=== PATIENT | male | born 1955 | race Caucasian/White ===

== ENCOUNTER 2024-03-25 18:25 | Inpatient (IN) | payer MEDICARE, BC ==
[~2024-03-25] VITALS: Ht 172.7 cm; Wt 82.1 kg
[~2024-03-25 18:25] MED LIST: ADULT ASPIRIN R81 MG PO; ALLOPURINOL300 MG PO; LISINOPRIL-HCT1 EAC2 PO
[2024-03-25] MEDS ORDERED: HIGH POTENCY I134 MG PO (18:38)
[2024-03-25] MEDS ORDERED: PANTOPRAZOLE SO40 MG PO (18:38)
[2024-03-25 19:02] LABS: BASOPHILS 0.6 % (0-2); EOSINOPHILS 0.5 % (0-6); HEMATOCRIT 18.4 % (35.0-50.0); HEMOGLOBIN 6.2 g/dL (12.0-18.0); MCH 29.2 (27-36); MCHC 33.7 g/dl (30-36); MCV 86.5 fl (81-99); MONOCYTES 5.2 % (0-12); NEUTROPHILS 79.7 % (39-80); PLATELET COUNT 331 K/uL (140-440); RBC 2.13 M/ul (4.3-5.7); RDW 14.3 (10.5-15.0)
[2024-03-25 19:15] LABS: ALBUMIN/GLOBULIN RATIO 1.03 (1.1-2.4); ANION GAP 14.6 (7-21); BILIRUBIN, TOTAL 0.4 ng/dL (0.2-1.0); CALCIUM 7.8 mg/dL (8.5-10.1); CREATININE, SERUM 1.1 mg/dL (0.70-1.30); POTASSIUM 3.6 mmol/L (3.5-5.1); PROTEIN, TOTAL 5.9 g/dL (6.4-8.2)
[2024-03-25 19:27] LABS: INR 1.05 (0.80-1.30); PROTIME 13.3 Sec (11.2-14.2)
[2024-03-25] MEDS ORDERED: PANTOPRAZOLE SODIUM 40 MG/10 ML VIAL IV ONE (19:30)
[2024-03-25 20:05] LABS: ABO B; ANTIBODY SCREEN NEGATIVE; IS CROSSMATCH COMPATIBLE; RH POSITIVE
[2024-03-25 20:06] LABS: ABO B; RH POSITIVE
[2024-03-25] MEDS ORDERED: MORPHINE SULFATE 4 MG/ML VIAL IV PRN (20:45)
[2024-03-25] MEDS ORDERED: ACETAMINOPHEN 325 MG TAB PO PRN (20:45)
[2024-03-25] MEDS ORDERED: DEXTROSE 5% - LACTATED RINGERS 1,000 ML IV SCH (20:45)
[2024-03-25] MEDS ORDERED: ondansetron HCL 4 MG/2 ML VIAL IV PRN (20:45)
[2024-03-25] MEDS ORDERED: PANTOPRAZOLE SODIUM 40 MG/10 ML VIAL IV SCH (21:00)
[2024-03-25 21:15] VITALS: BP 121/72
--- NOTE | 2024-03-25 21:30 | NUR ---
ADMISSION ASSESSMENT COMPLETE. SEE [facility] FOR DETAILS. PT DENIES PAIN. PT REQUESTING TO EAT. PT AWARE CLEAR LIQUID DIET IN PLAC. PT PROVIDED 2 JELLO'S AND ICE WATER. PT ORIENTED TO UNIT, ROOM AND POC. DR HOLLAND AT BEDSIDE FOR PT ASSESSMENT. 1 UNIT PRBC INFUSING PER ORDER. PT VERBALIZES UNDERSTANDINGTO USE CALL LIGHT WITH NEEDS. CALL LIGHT, PERSONAL ITEMS IN REACH. BED IN LOW, LOCKED POSITION. PT VSS AND NAD NOTED VIA DIRECT OBS, CONTINUOUS MONITOR AND PT STATEMENT.
[2024-03-25 22:00] VITALS: BP 146/86
--- NOTE | 2024-03-25 22:19 | NUR ---
PT ARRIVED TO UNIT VIA STRETCHER WITH ZAHRA MAZARIEGOSDEAN OF GRADUATE STUDIES AND PRESENT. PT SELF AMBULATED TO BED FROM STRETCHER WITHOUT INCIDENT. NAD NOTED VIA DIRECT OBS.
--- NOTE | 2024-03-25 22:46 | NUR ---
PT REQUESTED AND PROVIDED CONTAINER FOR HEARING AIDS, WARM BLANKET AND URINEL EMPTIED. REQUESTS PROVIDED. PT DENIES ADDITIONAL NEEDS. CALL LIGHT IN REACH. BED IN LOW LOCKED POSITION. VSS AND NAD NOTED VIA DIRECT OBS, CONTINUOUS MONITOR AND PT STATEMENT.
[2024-03-25 23:06] VITALS: BP 115/59
[2024-03-26] VITALS (13 sets, daily range): BP systolic 103–149; BP diastolic 63–110
--- NOTE | 2024-03-26 00:43 | NUR ---
SHIFT ASSESSMENT COMPLETE SEE [facility] FOR DETAILS. PT RESTING IN BED. PT STATES NO NEEDS. PRBC INFUSING INTO PATENT PIV WITHOUT INCIDENT. BED IN LOW, LOCKED POSITION WITH PERSONAL ITEMS AND CALL LIGHT IN REACH. VSS AND NAD NOTED VIA DIRECT OBS, CONTINUOUS MONITOR AND PT STATEMENT.
--- NOTE | 2024-03-26 02:16 | NUR ---
PT RESTING IN BED, EASILY AWAKENED TO VOICE. PT DENIES NEEDS AT THIS TIME. CALL LIGHT IN REACH. BED IN LOW, LOCKED POSITION. PRBC INFUSING PER EMAR INTO PATENT PIV WITHOUT INCIDENT. VSS AND NAD NOTED VIA DIRECT OBS, PT STATEMENT AND CONTINUOUS MONITOR.
--- NOTE | 2024-03-26 03:20 | NUR ---
PT RESTING IN BED. PT SNORING. O2 SAT DROPS TO 83% THEN INCREASES BACK TO >90% WITHIN SECONDS. NAD NOTED VIA DIRECT OBSAND CONTINUOUS MONITOR.
--- NOTE | 2024-03-26 04:35 | NUR ---
SHIFT ASSESSMENT COMPLETE. SEE [facility] FOR DETAILS. PT RESTINGIN BED. DENIES NEEDS. CALL LIGHT IN REACH. BED IN LOW, LOCKED POSITION. VSS AND NAD NOTED VIA DIRECT OBS AND CONTINUOUS MONITOR.
[2024-03-26 05:37] LABS: BASOPHILS 0.9 % (0-2); EOSINOPHILS 2.2 % (0-6); HEMATOCRIT 24.2 % (35.0-50.0); HEMOGLOBIN 8.2 g/dL (12.0-18.0); LYMPHOCYTES 17.9 % (24-44); MCH 29.2 (27-36); MCHC 33.9 g/dl (30-36); MCV 86.2 fl (81-99); MONOCYTES 8.2 % (0-12); NEUTROPHILS 70.8 % (39-80); PLATELET COUNT 265 K/uL (140-440); RBC 2.81 M/ul (4.3-5.7); RDW 13.9 (10.5-15.0)
[2024-03-26 06:03] LABS: ALBUMIN 2.6 g/dL (3.4-5.0); ALBUMIN/GLOBULIN RATIO 0.96 (1.1-2.4); ANION GAP 13.6 (7-21); BILIRUBIN, TOTAL 1.1 ng/dL (0.2-1.0); BUN/CREATININE RATIO 19.35 (6.0-28.6); CALCIUM 7.5 mg/dL (8.5-10.1); CREATININE, SERUM 0.93 mg/dL (0.70-1.30); MAGNESIUM 2.1 mg/dL (1.8-2.4); POTASSIUM 3.6 mmol/L (3.5-5.1); PROTEIN, TOTAL 5.3 g/dL (6.4-8.2)
--- NOTE | 2024-03-26 07:13 | NUR ---
REPORT GIVEN AND CARE ENDORSED TO DAYSHIFT RNs. PT RESTINGIN BED, VSS VIA CONTINUOUS MONITOR.
--- NOTE | 2024-03-26 07:45 | NUR ---
IN PT ROOM FOR MORNING ASSESSMENT. DR AT BEDSIDE TO DISCUSS PLAN. PT IS AWAKE AND ALERT SITTING UP IN BED. PT COMPLAINS OF HAVING A HEADACHE WITH 2/10 PAIN. EXPLAINED PLAN OF CARE FOR THE DAY. PT GIVEN CHG WIPE DOWN AND PROVIDED WITH A NEW GOWN. PT STATES HE HAS NO NEEDS AT THIS TIME. CALL LIGHT WITHIN REACH.
--- NOTE | 2024-03-26 07:59 | NUR ---
UR CLINICAL REVIEW: 2 MN FOR [employer] MEDICARE OBS 03/25/24 @ 1826 NO AUTH REQUIRE PENDING EGD, DISCHARGE TO HOME WHEN STABLE 03/27/24
[2024-03-26] MEDS ORDERED: ETOMIDATE 40 MG/20 ML VIAL ONE (08:53)
[2024-03-26 08:54] LABS: RBC, LEUKOREDUCED 18212409941500S; RBC, LEUKOREDUCED 18212410007500Y
--- NOTE | 2024-03-26 09:00 | NUR ---
Spoke with pt and his . 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 Primary address is in [place], [place]. He states they live on a boat in [place], [place]. They will return to their home here in [place] on dc. Pharmacy is [facility] when in [place]. They deny needs and he does not use any DME. They deny having completed POSLT or Advanced directive. I gave them two copies of the [place] Advanced directive forms. Pt plans on dc today after EGD. They deny any needs and deny any financial issues.
--- NOTE | 2024-03-26 09:15 | NUR ---
PT LEFT UNIT WITH SURGERY NURSE FOR SCOPE PROCEDURE
[2024-03-26] MEDS ORDERED: SUCCINYLCHOLINE IN 0.9% NACL 200 MG/10 ML SYRINGE ONE (09:16)
[2024-03-26] MEDS ORDERED: LIDOCAINE HCL 4% 5 ML AMP ONE (09:16)
[2024-03-26] MEDS ORDERED: propofoL 200 MG/20 ML VIAL ONE (09:32)
--- NOTE | 2024-03-26 10:10 | NUR ---
pt arrived back to floor from scope procedure. pt awake but drowsy, able to follow commands and answer questions. pt blood pressure is 108/70, heart rate 73, and SPO2 95% on RA. spouse at bedside. no needs at this time.
--- NOTE | 2024-03-26 10:30 | NUR ---
DR HOLLAND IN ROOM TO DISCUSS PROCEDURE FINDINGS. PT AT BEDSIDE. DR HOLLAND UPDATED PT AND WITH PLAN OF CARE FOR THE DAY.
--- NOTE | 2024-03-26 11:54 | NUR ---
PATIENT SITTING UP IN BED FOR LUNCH. FRESH ICE WATER PROVIDED WELL. AT BEDSIDE. CALL LIGHT IN EASY REACH
[2024-03-26] MEDS ORDERED: PHARMACY RENAL DOSE ADJUSTMENT 1 DOSE MISC PO SCH (12:00)
--- NOTE | 2024-03-26 13:35 | NUR ---
PT USED CALL LIGHT TO EMPTY URINAL. PT UP TO CHAIR. AT BEDSIDE. PT DENIES ANY PAIN AND HAS NO NEEDS AT THIS TIME. CALL LIGHT WITHIN REACH.
--- NOTE | 2024-03-26 14:46 | NUR ---
PATIENT TAKEN DOWN FOR CT SCAN AT 1425 AND IS BACK IN ROOM BY 1445. PT TOLERATED WELL. PT SITTING UP IN CHAIR IN ROOM AND DENIES FURTHER NEEDS/PAIN.
--- NOTE | 2024-03-26 17:24 | NUR ---
medications reconciled
--- NOTE | 2024-03-26 18:30 | EKG ---
[facility] [address] [facility] [place], [place] [address] Signed Normal sinus rhythm Left ventricular hypertrophy with repolarization abnormality Abnormal ECG When compared with ECG of 29-DEC-2022 10:07, Inverted T waves have replaced nonspecific T wave abnormality in Lateral leads Confirmed by Vitaliy Figueroa MD ([id number]) on 03/26/2024 6:30:12 PM Electronically Signed By: VITALIY FIGUEROA 03/26/24 1830 PATIENT NAME: SHEILAMIKE Neena Electrocardiogram DATE OF : 51 PHYSICIAN: VITALIY FIGUEROA REPORT #: [id number] REPORT IS CONFIDENTIAL AND NOT TO BE RELEASED WITHOUT AUTHORIZATION
--- NOTE | 2024-03-26 18:49 | NUR ---
PATIENT REMAINS SITTING UP IN CHAIR AND HAS FINISHED DINNER. PT DENIES PAIN, AND HAS TOLERATED FOOD WELL WITHOUT ANY SIGNS OF DISCOMFORT. PT WILL LIKELY D/C HOME TOMORROW.
--- NOTE | 2024-03-26 20:00 | NUR ---
PATIENT UP IN RECLINER. DENIED ANY PAIN OR GI UPSET. VS STABLE. PATIENT TOLERATED DINNER AND IS VOIDING TO URNAL. PATIENT REQUEST A SHOWER THIS EVENING AND HIS BROUGHT HIM CLOTHES TO SLEEP IN. PATIENT OTHERWISE DENIED ANY NEEDS. CALL LIGHT IN REACH.
--- NOTE | 2024-03-26 21:15 | NUR ---
PATIENT SHOWERED AND IN CLEAN CLOTHES. BACK ON MONITOR FOR THE NIGHT. PATIENT IS PAIN FREE WITH NO GI UPSET AND MOVES EASILY. DISCUSSED PLAN OF CARE AND ALL QUESTIONS ANSWERED. PATIENT RESTING IN BED WATCHING TV.
--- NOTE | 2024-03-26 21:35 | NUR ---
DISCUSSED PLAN OF CARE WITH . MEDS ORDERED, SEE EMAR. VERIFIED VIA REPEAT BACK.
[2024-03-26] MEDS ORDERED: PANTOPRAZOLE SODIUM 40 MG TABEC PO SCH (21:45)
[2024-03-26] MEDS ORDERED: SUCRALFATE 1 GM TAB PO SCH (22:00)
--- NOTE | 2024-03-26 22:08 | NUR ---
PATIENT PROVIDED SCHEDULED MEDS AND EDUCATED ON MEDS. PATIENT REPORTS A MILD HEADACHE THAT HAS BEEN OFF AND ON TODAY. NIO FOR TYLENOL PLACED. PATIENT PROVIDED A SNACK AND FRESH ICE WATER.
[2024-03-26] MEDS ORDERED: ACETAMINOPHEN 500 MG TAB PO PRN (22:15)
--- NOTE | 2024-03-26 23:00 | NUR ---
PRN TYLENOL PROVIDED FOR HEADACHE. PATIENT READY FOR SLEEP. DENIED ANY CONCERNS. VS STABLE. CALL LIGHT IN REACH.
[2024-03-27] VITALS: BP 117/72
[2024-03-27 02:00] VITALS: BP 132/80
--- NOTE | 2024-03-27 02:00 | NUR ---
PATIENT APPEARS RESTFUL IN BED. EYES CLOSED. VS STABLE. CALL LIGHT IN REACH.
[2024-03-27 04:00] VITALS: BP 108/63
--- NOTE | 2024-03-27 05:00 | NUR ---
MORNING LABS DRAWN. URNAL EMPTIED. PATIENT RESTING IN BED. NO CONCERNS OR NEEDS AT THIS TIME.
[2024-03-27 05:33] LABS: BASOPHILS 0.9 % (0-2); EOSINOPHILS 3.4 % (0-6); HEMATOCRIT 25.3 % (35.0-50.0); HEMOGLOBIN 8.4 g/dL (12.0-18.0); LYMPHOCYTES 16.7 % (24-44); MCHC 33.3 g/dl (30-36); MCV 87.3 fl (81-99); MONOCYTES 7.7 % (0-12); NEUTROPHILS 71.3 % (39-80); PLATELET COUNT 274 K/uL (140-440); RDW 14.7 (10.5-15.0)
[2024-03-27 05:42] LABS: ANION GAP 13.6 (7-21); BUN/CREATININE RATIO 14.42 (6.0-28.6); CALCIUM 7.7 mg/dL (8.5-10.1); CREATININE, SERUM 1.04 mg/dL (0.70-1.30); POTASSIUM 3.6 mmol/L (3.5-5.1)
[2024-03-27 06:36] VITALS: BP 118/80
--- NOTE | 2024-03-27 06:45 | NUR ---
PATIENT RESTING WITH EYES CLOSED. CALL LIGHT IN REACH.
[2024-03-27] MEDS ORDERED: SUCRALFATE 1 GM TAB PO SCH (07:00)
--- NOTE | 2024-03-27 07:45 | NUR ---
REPORT RECEIVED FROM BRASS RECLAIMER RN. PATIENT RESTING IN THE CHAIR. PATIENT UP AND ALERT AND HOPEFULL TO GO HOME TODAY. PATIENT DENEIS PAIN. JOSE LUIS RN IN TO SEE PATIENT AND WILL ASSSIT WITH CARES FOR PATIENT.
--- NOTE | 2024-03-27 08:20 | NUR ---
RECIEVED REPORT FROM NIGHTSHIFT NURSE. WENT IN ROOM TO INTRODUCE MYSELF TO PATIENT, PATIENT WAS SITTING UP IN RECLINER TALKING ON PHONE. GATHERED PATIENT'S VITALS AND SET UP BREAKFAST TRAY. REFILLED PATIENTS WATER. PATIENT WAS SITTING UP IN RECLINER HAVING BREAKFAST. PATIENT STATES HAVING NO OTHER NEEDS AT THIS TIME.
[2024-03-27 08:23] VITALS: BP 141/98
[2024-03-27] MEDS ORDERED: PANTOPRAZOLE SO40 MG PO (08:49)
[2024-03-27] MEDS ORDERED: SUCRALFATE1 GM PO (08:50)
--- NOTE | 2024-03-27 09:00 | NUR ---
Attempted to see pt. He is visiting with pharmacy.
--- NOTE | 2024-03-27 09:15 | NUR ---
WENT IN ROOM TO COMPLETE PATIENT ASSESSMNET AND GIVE MEDICATION. PATIENT VERBALIZED UNDERSTANDING OF WHY PROTONIX WAS GIVEN. PATIENT SITTING IN RECLINER IN HIS NORMAL CLOTHES READY FOR DISCHARGE. 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 REVIEWED PLAN OF CARE WITH PATIENT. AWAITING MD HOLLAND'S UPDATE.
--- NOTE | 2024-03-27 10:40 | NUR ---
Returned and spoke with pt and . They plan on dc today. FU appts have been made. Pt denies needs.
--- NOTE | 2024-03-27 11:00 | NUR ---
MD HOLLAND WANTS TO SEE PATIENT PRIOR TO DC. PATIENT UPDATED AND AWAITING MD WITH PATIENTS AT THE BEDSIDE.
--- NOTE | 2024-03-27 11:05 | CONS ---
[facility] [address] [place], [place] [address] Signed DATE OF CONSULTATION: 03/25/2024 REQUESTING PHYSICIAN: Dr. Amanda and Dr. Figueroa. ISSUE: Melena with significant anemia (symptomatic). HISTORY: A 68-year-old white man is well-known to me from the past. He recently underwent colonoscopy by me on March 14 showing diverticulosis. He had no symptoms of bleeding, diarrhea, or constipation. No family history of colon cancer. Although, diverticula were noted. There was no other abnormality, specifically no polyps. Since Sunday (today is Sunday), the patient has had a feeling of weakness and had hematemesis at least once and melena persistently since that time. He was able to tolerate working [place] but so when upright, became very weak and lightheaded. Certainly did not have any syncopal episodes per se, but knew that something was not quite right. He presented to [facility], his primary provider. CBC was obtained, which showed a hematocrit of approximately 16. I was called by Ilia Jc in this regard and given his symptomatic significant anemia with melena, I recommended he present to the emergency room. He was evaluated fully by Dr. Amanda where he was found to have a blood pressure systolic of 123 with a pulse of 74, but with hematocrit of 18.4 with a platelet count of 331 and normal electrolytes. His white count was 8.3. He was admitted as per our local custom to the hospitalist service with a transfusion initiated. The patient has been initiated on Protonix intravenously administered. His underlying medications include aspirin, ferrous sulfate, lisinopril, hydrochlorothiazide, and allopurinol. The patient has noted no bleeding prior to recent episode. He has had no blood per rectum or hematemesis in the past. He has no dysphagia or odynophagia. Quite notably, the patient suffered an ingestion in childhood of muriatic acid, which caused what sounds like a gastric outlet obstruction, ultimately undergoing "re-plumbing" as the patient put it, I suspect a gastrojejunostomy. He knows nothing more than that and this was a number of years ago in childhood. The patient has never had upper endoscopy in his adult life that he recalls or admits to. The patient does drink one beer a day. He does not smoke. He denies drug use. He has Electronically Signed By: ABHISHEK HOLLAND MD 03/27/24 1105 PATIENT NAME: MIKE SOSA CONSULTATION DATE OF : 51 REPORT #: [id number] PHYSICIAN: ABHISHEK HOLLAND MD PCP: ILIA JC REPORT IS CONFIDENTIAL AND NOT TO BE RELEASED WITHOUT AUTHORIZATION [address] [address] Signed recently been taking Motrin for joint pain and does take a low-dose aspirin daily. REVIEW OF SYSTEMS: He denies any epigastric or chest pain. He has no substernal burning pain or dysphagia. He has had hematemesis as described and melena as well. 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 He is accompanied by his . He has two grown daughters. PHYSICAL EXAMINATION: GENERAL: He, at this time, looks alert and oriented without sign of distress. VITAL SIGNS: Temperature 98.6, pulse 72, blood pressure 121/72. Trachea is midline. CHEST: Clear. HEART: Regular without murmur. ABDOMEN: Nondistended. He has no tenderness. No mass and no ascites. EXTREMITIES: Show no clubbing, cyanosis, or edema. his CBC at the hospital at approximately 6:50 p.m. showed a white count 8.3, hematocrit of 18.4, platelets of 331,000. Notably on December 29, a year ago, his hematocrit was 39.9 with platelets of 301. Chem profile essentially normal. Creatinine is 1.10. Liver enzymes show an alkaline phosphatase of 40, bilirubin 0.4. Coag studies are normal with an INR of 1.05. ASSESSMENT: The patient has clinical findings of acute upper gastrointestinal bleeding, which has been going on for several days at least since Sunday, four days ago. He has no associated his symptoms of dysphagia, epigastric pain, and so on. It is notable that he has had a gastric operation for what sounds like gastric outlet obstruction related to a muriatic acid ingestion in childhood. If he does have a gastrojejunal anastomosis as is considered possible, he may well have a peristomal ulceration. Ulceration of the duodenum or stomach certainly is a possibility as well. I would definitely recommend upper endoscopy be performed. It is not emergently needed at this time. He is undergoing transfusion, which was appropriate. The risk of bleeding, infection, and so forth were reviewed with him. He understands and wished to proceed. We will plan to do this probably tomorrow about 9:00 a.m., or alternatively in the early afternoon depending on logistical issues. Certainly, if he should "cut loose" with bleeding this evening, he can be done more urgently for hemostatic control. Abhishek Holland MD Electronically Signed By: ABHISHEK HOLLAND MD 03/27/24 1105 PATIENT NAME: MIKE SOSA CONSULTATION DATE OF : 51 REPORT #: [id number] PHYSICIAN: ABHISHEK HOLLAND MD PCP: ILIA JC REPORT IS CONFIDENTIAL AND NOT TO BE RELEASED WITHOUT AUTHORIZATION [facility] [address] [facility] [place] [address] Signed /MISTI /[id number] cc: [facility] DR, JERRY FIGUEROA Copies: ~ Electronically Signed By: ABHISHEK HOLLAND MD 03/27/24 1105 PATIENT NAME: MIKE SOSA CONSULTATION DATE OF : 51 REPORT #: [id number] PHYSICIAN: ABHISHEK HOLLAND MD PCP: ILIA JC REPORT IS CONFIDENTIAL AND NOT TO BE RELEASED WITHOUT AUTHORIZATION
--- NOTE | 2024-03-27 11:05 | OR ---
[facility] [address] [place], [place] [address] Signed DATE OF OPERATION: 03/26/2024 SURGEON: Abhishek Holland MD PREOPERATIVE DIAGNOSES: 1. Melena and hematemesis, significant anemia, hematocrit 18 (24 after 2 unit transfusion). 2. 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 POSTOPERATIVE DIAGNOSIS: Peristomal ulceration at gastrojejunal anastomosis suggestive of neoplasm. PROCEDURES: 1. Esophagogastroduodenoscopy with biopsy. 2. Control of bleeding with hemoclip and biopsies. ANESTHESIA: Intravenous sedation, propofol, Abhishek Morales CRNA. INDICATION: This 68-year-old white man is a patient of [facility]. He underwent colonoscopy by me in the past two weeks, which was normal. The patient over the past five days has had episodes of melena and at least one episode of hematemesis. A CBC was obtained by Ilia Jc showing a hematocrit of only 18. He was directed to the emergency room where he was evaluated by Dr. Amanda and found to have a low hematocrit and postural hypotension, but no sign of ongoing severe bleeding. He was admitted under the direction of the hospitalist and I was consulted as I knew him well. I have discovered that he has a distant childhood history of muriatic acid ingestion which resulted in gastric outlet obstruction and subsequent operation " " according to the patient. I suspect this was a gastrojejunal anastomosis. He has had no problem with this in the past and doing well. 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 I have recommended upper endoscopy to better characterize the problem. He has undergone a 2 unit blood transfusion to bring his hematocrit to 24. He has had no known bleeding throughout the night. He understands the risk of bleeding, infection, and perforation related to upper endoscopy and wished to proceed. FINDINGS: The esophagus was normal. There was indeed a gastrojejunal anastomosis as suspected. Electronically Signed By: ABHISHEK HOLLAND MD 03/27/24 1105 PATIENT NAME: MIKE SOSA OPERATIVE REPORT DATE OF : 51 REPORT #: [id number] PHYSICIAN: ABHISHEK HOLLAND MD PCP: ILIA JC REPORT IS CONFIDENTIAL AND NOT TO BE RELEASED WITHOUT AUTHORIZATION [facility] [address] [place], [place] [address] Signed This was an area of bleeding. A dense ulcerative plaque highly suggestive of neoplasm was noted. Biopsies were taken of this to diagnosis possible malignancy. A hemoclip was used at the base of the wound for hemostasis in the area of presumptive recent bleeding as well as to mahsa the lesion for CT scan. A CLOtest biopsy was negative 30 minutes post procedure. DESCRIPTION OF PROCEDURE: The patient was brought to the endoscopy suite and placed in the lateral decubitus position. He was given intravenous sedation with propofol infusional technique. A bite block was placed. Olympus video upper endoscope was passed in the hypopharynx. The vocal cords were normal. The scope was passed in the esophagus, which was normal. Passage to the GE junction was also normal. No sign of Tammie-Mackey tear. Within the stomach, there was no sign of clot. There was bilious fluid and rugal folds appeared somewhat edematous. In the midportion of the stomach, there was clear evidence of an ulcerated lesion as well as the gastrojejunal anastomosis as had been clinically suspected. The ulcer was somewhat deep and had some fresh blood there. In the center portion, there was an area suggestive of recent bleeding which was secured with a hemoclip ultimately. Biopsies were taken of the dense wall of the ulcerated area with strong suspicion this may represent malignant degeneration. A biopsy was taken of the stomach as well to assess for H pylori. CLOtest was negative 30 minutes post procedure. There was no actual gastric outlet of the stomach in the area of the pylorus that appeared to be scarred down. Retroflexed view did show a small hiatal hernia. There was no sign of proximal neoplasm. The scope was then withdrawn and the patient was taken to the recovery room in good condition. CONCLUDING DIAGNOSIS: Ulcerated lesion at gastrojejunal anastomosis from the distant past. I have strong suspicion this represents malignancy. Biopsies are pending. There is no sign of ongoing bleeding at this time. We will organize for a CT scan to be obtained to assess for the area in question as well as to assess for regional metastatic disease if present. In the meantime, treatment will include PPI medication and Carafate. Abhishek Holland MD /CESILIAL /[id number] Electronically Signed By: ABHISHEK HOLLAND MD 03/27/24 1105 PATIENT NAME: MIKE SOSA OPERATIVE REPORT DATE OF : 51 REPORT #: [id number] PHYSICIAN: ABHISHEK HOLLAND MD PCP: ILIA JC REPORT IS CONFIDENTIAL AND NOT TO BE RELEASED WITHOUT AUTHORIZATION [facility] [address] [place] [address] Signed cc: [facility] Copies: ILIA JC ~ Electronically Signed By: ABHISHEK HOLLAND MD 03/27/24 1105 PATIENT NAME: SHEILAMIKE Neena OPERATIVE REPORT DATE OF : 51 REPORT #: [id number] PHYSICIAN: ABHISHEK HOLLAND MD PCP: ILIA JC REPORT IS CONFIDENTIAL AND NOT TO BE RELEASED WITHOUT AUTHORIZATION
--- NOTE | 2024-03-27 11:13 | NUR ---
UR CLINICAL REVIEW: [employer]MN [employer] INPT 03/26/24 @ 1539 MEETS NO PA NEEDED PLAN TO DC TO HOME WHEN READY 03/30/24
--- NOTE | 2024-03-27 11:30 | NUR ---
MD HOLLAND CAME TO TALK TO PATIENT. DISCUSSED PLAN OF CARE. ANSWERED ALL QUESTIONS. PATIENT VERBALIZED UNDERSTANDING OF CARE PLAN AND WAS AGREEABLE TO PLAN OF CARE. PATIENT GATHERED OWN PERSONAL BELONGINGS. IV REMOVED AND CATHETER WAS INTACT. LAST VITAL SIGN CHECK WAS STABLE AND DOCUMENTED. PATIENT FOLLOW UP APPOINTMENT SCHDULED. PATIENT DISCHARGED WITH DRIVING HIM HOME.
[2024-03-28 15:25] LABS: CARCINOEMBRYONIC ANTIGEN 1.6 ng/mL (())
--- NOTE | 2024-04-01 20:16 | PATH ---
[facility] [address] [facility] [place], [place] [address] Signed THIS IS AN ADDENDUM REPORT SPECIMEN(S): A STOMACH BIOPSY SPECIMEN SOURCE: A. 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 COMMENT: Microsatellite instability testing by immunohistochemistry is pending and will be reported in an addendum. As part of [facility]' Quality Improvement Program, this case was reviewed by another member of our pathology staff. Diagnostic notification to the office of Dr. Crystal is initiated by Dr. Aparicio and will be recorded separately. JVR:MACKENZIE:fer MICROSCOPIC EXAMINATION: Histologic sections of all submitted blocks are examined by light microscopy. These findings, together with the gross examination, support the pathologic diagnosis. GROSS DESCRIPTION: The specimen, labeled and designated "Jeremy, stomach biopsy," is received in formalin and consists of four ellis soft tissue fragments, ranging from 0.1-0.2 cm. Entirely submitted in (A1). JS (under the direct supervision of a pathologist) The Gross Description was prepared using a voice recognition system. The report was reviewed for accuracy; however, sound-alike word errors, addition and/or deletions may occur. If there is any question about this report, please contact Client Services. PERFORMING LABORATORY: Technical component was performed by [facility], [address] [place] [id number] (CLIA# [id number]). Professional interpretation was PATIENT NAME: MIKE SOSA PATHOLOGY DATE OF : 51 REPORT #: [id number] PHYSICIAN: TAMRA BRYSON PCP: ILIA PIÑA REPORT IS CONFIDENTIAL AND NOT TO BE RELEASED WITHOUT AUTHORIZATION [facility] [address] [place], [place] [address] Signed performed by [facility], [address] [place] [address], [place] [address] (CLIA#: [id number]). COMMENT: Tumor cells show no loss of nuclear expression of MMR proteins. This correlates with a low probability of microsatellite instability. However, if there is a high clinical suspicion for Aguilera syndrome (hereditary non-polyposis colorectal carcinoma syndrome) in this patient, additional testing should be considered. Please contact [facility] if such testing is indicated. ELISEO:miles ADDITIONAL NOTES: Immunohistochemical and/or in situ hybridization studies were performed on this case with the appropriate positive controls that react as expected. This test was developed and its performance characteristics determined by [facility]. It has not been cleared or approved by the U.S. Food and Drug Administration. The FDA has determined that such clearance or approval is not necessary. This test is used for clinical purposes. It should not be regarded as investigational or for research. [facility] is certified under the Clinical Laboratory Improvement Amendments of 1988 (CLIA) as qualified to perform high complexity clinical laboratory testing. [facility], [address] [place] [address] [address] [place] [address] (CLIA#: [id number]). REASON FOR ADDENDUM: To report the results of microsatellite instability testing by immunohistochemistry. ADDENDUM PATHOLOGIC DIAGNOSIS: Stomach biopsy, invasive adenocarcinoma, microsatellite instability testing by IHC: - MLH1: Intact nuclear expression. - MSH2: Intact nuclear expression. - MSH6: Intact nuclear expression. - PMS2: Intact nuclear expression. INTERPRETATION: Normal pattern. ADDENDUM MICROSCOPIC EXAMINATION: A panel of four antibodies is selected which will detect 95% of microsatellite unstable carcinomas. Testing is performed at the request of Dr. Mariela Aparicio. PATIENT NAME: MIKE SOSA PATHOLOGY DATE OF : 51 REPORT #: [id number] PHYSICIAN: TAMRA PATHOLOGY PCP: ILIA PIÑA REPORT IS CONFIDENTIAL AND NOT TO BE RELEASED WITHOUT AUTHORIZATION [facility] [address] [place], [place] [address] Signed Block: A1. Recut HE slide is prepared from the block. The presence of neoplastic glands and non-neoplastic internal control glands or stroma is confirmed. Internal control cells for MLH1, MSH2, PMS2 and MSH6 are positive. Neoplastic gland cells show the following: - MLH1: Positive. - MSH2: Positive. - MSH6: Positive. - PMS2: Positive. [facility] [place] [facility] [place] [place] Diagnostician: Landen Aparicio MD Pathologist Electronically Signed 04/01/2024 Copies: ~ PATIENT NAME: MIKE SOSA PATHOLOGY DATE OF : 51 REPORT #: [id number] PHYSICIAN: TAMRA PATHOLOGY PCP: ILIA PIÑA REPORT IS CONFIDENTIAL AND NOT TO BE RELEASED WITHOUT AUTHORIZATION
== END 2024-03-27 11:25 | disposition home or self-care (01) | DRG 374 ==
LOC: ED 18:25 → CCU 18:26
PROVIDERS: Emergency Medicine; Family Medicine; Surgery; ADMIT Internal Medicine; ATTEND Internal Medicine
PROC: 0W3P8ZZ Control Bleeding in Gastrointestinal Tract, Via Natural or Artificial Opening Endoscopic (ICD-10-PCS; 2024-03-26)
PROC: 30233N1 Transfusion of Nonautologous Red Blood Cells into Peripheral Vein, Percutaneous Approach (ICD-10-PCS; 2024-03-26)
PROC: 0DB68ZX Excision of Stomach, Via Natural or Artificial Opening Endoscopic, Diagnostic (ICD-10-PCS; principal; 2024-03-26 09:45)
DX: C16.9 Malignant neoplasm of stomach, unspecified (principal); K28.4 Chronic or unspecified gastrojejunal ulcer with hemorrhage; D62 Acute posthemorrhagic anemia; K80.20 Calculus of gallbladder without cholecystitis without obstruction; Z98.890 Other specified postprocedural states; Z88.1 Allergy status to other antibiotic agents; Z88.5 Allergy status to narcotic agent; Z79.899 Other long term (current) drug therapy; Z79.82 Long term (current) use of aspirin
CPT/HCPCS: 00813; 36415; 36430; 74177; 80048; 80053; 82378; 83735; 84484; 85025; 85610; 86850; 86900; 86901; 86922; 88305; 88341; 88342; 93005; 93010; 96374; 96376; 99284-25; A9270; C9113; G0378; J0330; J2704; P9016; Q9967

== ENCOUNTER 2024-04-14 15:11 | Inpatient (IN) | payer MEDICARE, BC ==
[~2024-04-14] VITALS: Ht 172.7 cm; Wt 81.8 kg
[~2024-04-14 15:11] MED LIST changes: +HIGH POTENCY I134 MG PO; +PANTOPRAZOLE SO40 MG PO; +SUCRALFATE1 GM PO
[2024-04-15] MEDS ORDERED: LISINOPRIL10 MG PO (13:53)
[2024-04-15 14:05] VITALS: BP 1396/94
[2024-04-16] MEDS ORDERED: CARAFATE1 GM PO (17:43)
[2024-04-17] MEDS ORDERED: LACTATED RINGER'S 1,000 ML IV SCH ×2 (05:00→16:00)
[2024-04-17 06:25] VITALS: BP 142/83
[2024-04-17] MEDS ORDERED: LIDOCAINE HCL 1% 5 ML SDV INJ ONE (07:00)
[2024-04-17] MEDS ORDERED: HEParin SOD (PORCINE) 5,000 UNIT/0.5 ML SYR SUB-Q SCH ×2 (07:00→21:00)
[2024-04-17] MEDS ORDERED: levoFLOXacin 500 MG/100 ML BAG IV SCH (07:00)
[2024-04-17] MEDS ORDERED: IBLOOD GLUCOSE TEST STRIP 1 EA TEST VI PRN ×2 (07:00→13:00)
[2024-04-17] MEDS ORDERED: ROCURONIUM BROMIDE 50 MG/5 ML SYR ONE ×4 (07:03→14:46)
[2024-04-17] MEDS ORDERED: LIDOCAINE HCL 2% 20 MG/ML VIAL INJ ONE (07:03)
[2024-04-17] MEDS ORDERED: dexmedeTOMIDine HCl 200 MCG/2 ML VIAL ONE (07:03)
[2024-04-17] MEDS ORDERED: ondansetron HCL 4 MG/2 ML VIAL ONE ×2 (07:03→16:22)
[2024-04-17] MEDS ORDERED: DEXAMETHASONE SOD PHOS 4 MG/ML VIAL ONE ×4 (07:03→16:04)
[2024-04-17] MEDS ORDERED: propofoL 200 MG/20 ML VIAL ONE (07:03)
[2024-04-17] MEDS ORDERED: ACETAMINOPHEN 1,000 MG/100 ML VIAL ONE (07:03)
[2024-04-17] MEDS ORDERED: LIDOCAINE HCL 2% 5 ML SDV ONE (07:03)
[2024-04-17] MEDS ORDERED: fentaNYL citrate 100 MCG/2 ML VIAL ONE (07:03)
[2024-04-17] MEDS ORDERED: SUGAMMADEX SODIUM 200 MG/2 ML ML ONE (07:03)
[2024-04-17] MEDS ORDERED: KETAMINE in NS 50 MG/5 ML SYR ONE (07:04)
[2024-04-17] MEDS ORDERED: SODIUM CHLORIDE 0.9% 40 ML IV ONE (07:19)
[2024-04-17] MEDS ORDERED: iopamidoL 30 ML VIAL ONE (07:19)
--- NOTE | 2024-04-17 07:21 | NUR ---
justin dc in to talk with pt.
[2024-04-17] MEDS ORDERED: ePHEDrine sulfate 50 MG/ML AMP ONE (08:05)
[2024-04-17] MEDS ORDERED: LACTATED RINGER'S 1,000 ML IV ONE ×3 (08:48→15:27)
[2024-04-17] MEDS ORDERED: SODIUM CHLORIDE 0.9% 20 ML IV ONE ×2 (12:53→16:04)
[2024-04-17] MEDS ORDERED: Ropivacaine HCl 0.5% 30 ML VIAL ONE ×2 (12:53→16:04)
[2024-04-17] MEDS ORDERED: ondansetron HCL 4 MG/2 ML VIAL IV PRN ×2 (13:00→16:00)
[2024-04-17] MEDS ORDERED: droPERidol 5 MG/2 ML VIAL IV PRN (13:00)
[2024-04-17] MEDS ORDERED: HYDROmorphone HCL 1 MG/ML SYR IV PRN (13:00)
[2024-04-17] MEDS ORDERED: PROCHLORPERAZINE EDISYLATE 10 MG/2 ML VIAL IV PRN ×2 (13:00→16:00)
[2024-04-17] MEDS ORDERED: NALOXONE HCL 0.4 MG SYR IV PRN (13:00)
[2024-04-17] MEDS ORDERED: fentaNYL citrate 50 MCG/ML SDV IV PRN (13:00)
[2024-04-17] MEDS ORDERED: MORPHINE SULFATE 10 MG/ML VIAL IV PRN (16:00)
[2024-04-17] MEDS ORDERED: KETOROLAC TROMETHAMINE 15 MG/ML VIAL IV PRN (16:00)
[2024-04-17] MEDS ORDERED: levoFLOXacin 500 MG/100 ML BAG IV ONE (16:15)
[2024-04-17] MEDS ORDERED: ACETAMINOPHEN 1,000 MG/100 ML VIAL IV PRN (16:15)
[2024-04-17] MEDS ORDERED: droPERidol 5 MG/2 ML VIAL ONE (16:36)
[2024-04-17 17:25] VITALS: BP 163/85
--- NOTE | 2024-04-17 17:25 | NUR ---
RECIEVED PATIENT FROM DAYSURGERY AND REPORT FROM NURSE MULLEN. PT IS CURRENTLY IN BED BUT STATES THAT HIS BACK IS HURTING. VHARGE NURSE OFFERED A HEAT BACK TO PT BACK. PT HAS A RED BLANCHABLE AREA BY COCCYX. PT IS ON 3L WITH OXI MASK. PT ASKED IF SHE CAN HAVE ESSENTIAL OILS BUT WAS TOLD NO. CHARGE NURSE NOTIFIED. NO OTHER CONCERNS AT THIS TIME CALL LIGHT WITHIN REACH
[2024-04-17 18:42] VITALS: BP 153/74
--- NOTE | 2024-04-17 18:49 | NUR ---
pt complained of pain in his mid back. pt requested pain medication. pain medication given per dr calabrese. 4mg of morphine. pt is currently asleep on his right side with in room. dr floyd just went in to check on him. no other cares needed or requested at this time calll light within reach
--- NOTE | 2024-04-17 19:05 | NUR ---
REPORT RECEIVED FROM JOSE ANTONIO SWEENEY. pt RESTING IN THE BED. SKIN CHECK DONE. MINIMAL DRIANAGE ON BANDAGES. LLQ LOY DRAIN IS FULL AT THIS TIME, WILL EMPTY AFTER REPORT. pt DENIES ANY NEEDS AT THIS TIME. CALL LIGHT WITHIN REACH. CPOX ON. pt SATTING AT 99% ON 4L OXYMASK.
--- NOTE | 2024-04-17 19:28 | NUR ---
04/17/24 1928 Mckenna Villarreal 1551 PT ARRIVED TO PACU WITH ORAL AIRWAY IN PLACE AND CHIN LIFT USED OFF AND ON TO MAINTAIN AIRWAY. HOB INCREASED, 6L VIA MASK IN PLACE. 155 ORAL AIRWAY REMOVED, PT STARTS GRABBING FOR HIS FACE AND SAY "COFFEE TOO HOT." PT DIAPHERETIC AND MOVING AROUND IN BED, PT MOANING. RN STARTS TO REORIENT PT TO PACU. 1600 GASKET NOTCHER AT BEDSIDE AND ASKED PT ABOUT PAIN, PT REPORTS "YES AND TOO HOT." BLANKETS REMOVED AND COOL AIR AND COOL CLOTH PLACED ON PT FOREHEAD. 1610 GASKET NOTCHER AT BEDSIDE TO REDO ABD BLOCK. PT LOOKING AROUND ROOM AND GRMACING AND MOANING OFF AND ON. PT RESTLESS IN BED. 1615 PT HANDS ABOVE HIS HEAD AND FINGERS INTERLOCKED, O2 SAT UNABLE TO READ. 1620 PT ABLE TO RELAX RIGHT ARM AND O2 SAT LOW 90S. PT LESS RESTLESS AND REPORTS NAUSEA. 1625 NAUSEA MEDICATION GIVEN, PT REPORTS "I AM UNCOMFORTABLE." IV REINFORCED. PT NOTED TO BE LESS DIAPHROETIC AND SLIGHTLY MORE AWAKE. 1631 O2 MASK REMOVED. 1638 3L OXYMASK PLACED DUE TO O2 SAT HIGH 80S AND O2 INCREASED TO MID 90S. PT CONTINUES TO REPORTS NAUSEA BUT REMAINS VERY DROWSY AND UNABLE TO STAY AWAKE, SNORING NOTED WHEN ASLEEP AND O2 DECREASED TO LOW 90S. 1650 PT WAKES TO REPORTS HE IS VERY UNCOMFORTABLE, NAUSEA MORE THAN PAIN. 1656 NAUSEA MEDICATION GIVEN, EDUCATION GIVEN ON BREATHING AND MEDICATION GIVEN. HOB INCREASED SLIGHTLY. ABD BRACED WITH PILLOW AND EDUCATION GIVEN ON BRACING ABD WHEN COUGHING. 1707 PAIN MEDICATION GIVEN, AND DEEP BREATHING ENCOURAGED. PLAN OF CARE DISCUSSED. PT REPORTS HIS PAIN 7/10. 1715 PT RESTING BED WITH AND ASLEEP WITH SNORING NOTED. O2 REMAINS LOW 90S ON 3L, PT WAKES EASILY AND REPORTS PAIN 5/10 AND NAUSEA IS BETTER. 1725 PT TRANSFERED TO FLOOR AND REPORTS GIVEN WITH AT BEDSIDE. ALL QUESTIONS ANSWERED. BED PLUGGED IN AND CONTINUOUS PLUSE OX IN PLACE. NG TUBE TO LOW INTERMITTEN SUCTION AND BELONGING IN ROOM. HOB DECREASED AND PT ABLE TO SLEEP EASILY AND VSS. CALL LIGHT WITHIN REACH.
[2024-04-17 19:35] VITALS: BP 155/78
--- NOTE | 2024-04-17 20:20 | NUR ---
REMAINING PORTIONS OF ADMISSION COMPLETED. pt REQUESTING TO SIT ON EDGE OF BED D/T BACK PAIN FROM POSITIONING IN SURGERY. PRIMARY RN DANN AT BEDSIDE TO ASSIST.
[2024-04-17 20:38] VITALS: BP 166/91
--- NOTE | 2024-04-17 20:43 | NUR ---
Completed vitals and emptied ford at 600. Right VERNA 30. Left VERNA 35. Patient is painful in lower back and nurse has administrated pain medication. Patient stood at bedside to stretch legs and help back pain, became dizzy and so I helped him lay back into bed. Call light is within reach and nothing else is needed at this time.
--- NOTE | 2024-04-17 20:45 | NUR ---
ASSESSMENT AND VITAL SIGNS DONE. pt REQUESTED TO SIT UP AND STAND UP BECAUSE HIS BACK IS SORE AT THIS TIME. pt C/O 6/10 LOWER BACK PAIN AND NAUSEA. IV FLUSHED, PT STATE HIS IV SITE IS HURTING BUT IT FLUSHES OK. WHEN THIS RN WAS ADMINISTERING PRN AND SCHEDULED MEDICATIONS. THE pt SAID THAT HIS IV SITE WAS STILL HURTING HIM. UPON FURTHER INVESTIGATION THIS RN DID NOTICE THAT THIS IV SITE WAS INFLILTRATED. SO I STOPPED GIVING THE MEDICATION AND PROCEEDED TO START A NEW IV FOR THE pt. pt TITRATED DOWN TO 3L OXYMASK. ONCE THE NEW IV WAS STARTED AND WORKING OK THIS RN FINISHED ADMINISTERING THE MEDICATIONS PER ORDER, SEE MAR. HOT PACK PROVIDED FOR pt. SCD'D ON. LLQ DRESSING HAS MODERATE AMMOUNT OF DRINAGE AROUND THE LOY DRAIN. DRESSING STILL INTACT. ICE CHIPS FOR COMFORT. NG TUBE AT LOW INTERMITTENT SUCTION. pt DENIES ANY OTHER NEEDS AT THIS TIME. CALL LIGHT WITHIN REACH.
[2024-04-17] MEDS ORDERED: SUCRALFATE 1 GM TAB PO SCH (21:00)
[2024-04-17] MEDS ORDERED: FAMOTIDINE 20 MG/ 2 ML VIAL IV SCH (21:00)
--- NOTE | 2024-04-17 21:35 | NUR ---
IV ABX INFUSING PER ORDER, SEE MAR. pt DENIES ANY OTHER NEEDS AT THIS TIME. pt REMINDED TO PUT OXYMASK ON HIS SATURATION WERE DROPPING INTO THE LOW 80'S. pt STATES HE HAS SLEEP APNEA. CALL LIGHT WITHIN REACH.
[2024-04-17 22:54] VITALS: BP 166/91
--- NOTE | 2024-04-17 23:40 | NUR ---
pt RESTING IN THE BED WITH EYES CLOSED. pt SATTING AT 97% ON 2L OXYMASK. pt TITRATED DOWN TO 1L OXYMASK. NO OTHER NEEDS AT THIS TIME. CALL LIGHT WITHIN REACH.
[2024-04-18] VITALS (9 sets, daily range): BP systolic 154–175; BP diastolic 76–87
--- NOTE | 2024-04-18 01:45 | NUR ---
pt CALLED TO HAVE HIS SCD'S REMOVED FOR NOW. pt WANTS FRESH ICE CHIPS. ASSESSMENT AND VITAL SIGNS DONE. pt SATTING AT 97% ON 1L OXYMASK. pt DENIES ANY PAIN AT THIS TIME. NO NEW DRAINAGE ON DRESSINGS AT THIS TIME. CALL LIGHT WITHIN REACH.
--- NOTE | 2024-04-18 03:32 | NUR ---
pt RESTING IN THE BED WITH EYES CLOSED. RR EVEN AND UNLABORED. O2 SATURATION AT 96% ON 1L OXYMASK. CALL LIGHT WITHIN REACH.
[2024-04-18 05:24] LABS: BASOPHILS 0.1 % (0-2); HEMATOCRIT 26.8 % (35.0-50.0); HEMOGLOBIN 8.6 g/dL (12.0-18.0); LYMPHOCYTES 2.3 % (24-44); MCH 26.5 (27-36); MCV 82.8 fl (81-99); MONOCYTES 4.9 % (0-12); NEUTROPHILS 92.7 % (39-80); PLATELET COUNT 309 K/uL (140-440); RBC 3.24 M/ul (4.3-5.7); RDW 16.6 (10.5-15.0)
--- NOTE | 2024-04-18 06:13 | NUR ---
PER PROTOCOL, ORDER FOR CHEST X-RAY PLACED TO CONFIRM PLACEMENT OF NG TUBE PRIOR TO FLUSHING NG TUBE. IMAGING AWARE.
--- NOTE | 2024-04-18 06:45 | NUR ---
pt RESTED ALL NIGHT. pt TITRATED TO 1L OXYMASK FOR SLEEP APNEA. NOSE STICKER REAPPLIED. L AND R LOY DRAIN EMPTIED. REYNOSO EMPTIED. SCHEDULED MEDICATION ADMINISTERED.
--- NOTE | 2024-04-18 06:56 | NUR ---
CHEST X-RAY RESULT SUGGESTS TO ADVANCE NG TUBE. DISCUSSED WITH DR HOLLAND. PER DR HOLLAND, DO NOT ADVANCE OR WITHDRAW THE TUBE, LEAVE IN CURRENT PLACE. HE HAS IT IN THE LOCATION HE WANTS AND IT IS TO BE LEFT ALONE. PRIMARY RN UPDATED AND AWARE.
--- NOTE | 2024-04-18 07:30 | NUR ---
REPORT RECIEVED ON PT FROM NIGHT RN - PT RESTING IN BED AWAKE, ALERT AND ORIENTED. NGT TO LIS FUNCTIONING PROPERLY. REQUIRING 02 VIA OXYMASK WHILE SLEEPING. MIDLINE INCISION C/D/I WITH MINIMAL SPOTTING OF DRAINAGE ON ACTICOTE. VERNA DRAIN DRESSINGS CHANGED THEY WERE SATURATED WITH SEROSANG FLUID DRAINING FROM PUNCTURE SITE. PT COMPLAINS OF LOWER BACK PAIN, ICE PROVIDED WELL REPOSISTIONING. DENIES NEED FOR PAIN MEDICATION AT THIS TIME. BOWEL TONES ABSENT, ABDOMEN SOFT, TENDER BUT WITHOUT FULL SENSATION YET. REYNOSO CATH PATENT AND DRAINING CLEAR YELLOW URINE. SCDS IN PLACE. WASH RAG PROVIDED FOR AM CARES. PT DENIES FURTHER NEEDS AT THIS TIME.
--- NOTE | 2024-04-18 08:15 | NUR ---
PATIENT RESTING IN BED. RN IN ROOM WELL. CALL LIGHT WITHIN REACH, NO FURTHER NEEDS AT THIS TIME.
[2024-04-18] MEDS ORDERED: LISINOPRIL10 MG PO (09:46)
--- NOTE | 2024-04-18 09:48 | NUR ---
MED REC COMPLETE
--- NOTE | 2024-04-18 09:54 | NUR ---
pt resting in bed visiting with . reports increasing pain in lower back but denies need for pain medication at this time. Ice pack provided. IS instruction given by RT, pt demonstrates appropriate use. pt offered splinting blanket. call light in reach.
--- NOTE | 2024-04-18 11:37 | NUR ---
RN IN ROOM ROUNDING WITH MD - ALL QUESTIONS ANSWERED. POC DISCUSSED WITH PT AND PT AGREEABLE.
--- NOTE | 2024-04-18 12:02 | NUR ---
OFRIMEV ADMINISTERED FOR 4/10 ABD PAIN, PT FEELING "QUEEZY" AND DENIES WANTING MORPHINE AT THIS TIME, TOO SOON FOR TORADOL. REYNOSO CATH REMOVED WITHOUT DIFFICULTY.
--- NOTE | 2024-04-18 12:30 | NUR ---
PT AMBULATING IN HALLWAY, STEADY ON FEET, DENIES COMPLAINTS - BACK TO CHAIR. CALL LIGHT IN REACH.
--- NOTE | 2024-04-18 14:00 | NUR ---
AFTERNOON ASSESSMENT COMPLETE. PT USING IS AND COUGHING/DEEP BREATHING VOLUNTARILY. PAIN WELL CONTROLLED WITH PRN TORADOL. AMBULATING IN ROOM WITH ASSISTANCE FOR LINE MANAGMENT. DRAIN DRESSINGS CHANGED, VERNA DRAINS DRAINING SEROSANG FLUID. PT ABLE TO VOID SPONTANEOUSLY POST REYNOSO REMOVAL. AT BEDSIDE, DENIES COMPLAINTS. CALL LIGHT IN REACH.
--- NOTE | 2024-04-18 15:23 | NUR ---
PATIENT ALERT AND ORIENTED, SITTING UP IN BED. STATES HE LIVES IN HOUSE WITH . NO DME. NORMALLY PATIENT IS ABLE TO DRIVE, WILL ASSIST WITH TRANSPORTATION AT DC. DENIES ANY FINANCIAL HARDSHIP. INSTRUCTED TO NOTIFY STAFF IF NEEDS ARISE.
--- NOTE | 2024-04-18 15:52 | NUR ---
UR CLINICAL REVIEW: [facility]MN [facility] INPT 04/17/24 @ 1604 STATUS MATCHES ORDER NO AUTH REQUIRED PER MEDICARE RULES PLAN TO DC TO HOME WHEN STABLE.
--- NOTE | 2024-04-18 19:05 | NUR ---
REPORT RECEIVED FROM YANIQUE SWEENEY. pt RESTING IN THE BED. pt REQUESTING TO GO FOR A WALK. PLAN DICUSSED WITH pt. NO OTHER NEEDS AT THIS TIME. CALL LIGHT WITHIN REACH.
--- NOTE | 2024-04-18 20:45 | NUR ---
THIS REGIONAL SALES TRAINER ASSISTED PT TO WALK IN THE HALLWAY, x2 HALLWAY [facility], (RM 110 TO 118 AND BACK TO PT RM) PT SBA WITH IV POLE ASSIST, BACK TO RM, USED URINAL ONCE MORE, TUCKED INTO BED
--- NOTE | 2024-04-18 21:30 | NUR ---
pt RESTING IN THE BED. SCHEDULED MEDICATIONS ADMINSITERED, SEE MAR. pt NG TUBE STOPPED AND UNPLUGGED SO HE CAN TAKE HIS CARAFATE AND GO FOR A WALK. MIDLINE ACTICOTE HAS NO NEW DRAINAGE AND IS INTACT. LLQ DRESSING INTACT WITH MINIMAL DRAINAGE AT THIS TIME. RLQ DRESSING CDI. pt DENIES ANY PAIN AT THIS TIME. CALL LIGHT WITHIN REACH. NO OTHER NEEDS AT THIS TIME.
--- NOTE | 2024-04-18 23:11 | NUR ---
pt RESTING IN THE BED. RR EVEN AND UNLABORED. SCD'S ON. pt DENIES ANY NEEDS AT THIS TIME. CALL LIGHT WITHIN REACH. IVF INFUSING PER ORDER.
--- NOTE | 2024-04-19 01:43 | NUR ---
pt ASKED TO BE REPOSITIONED. pt DENIES ANY OTHER NEEDS AT THIS TIME. CALL LIGHT WITHIN REACH.
--- NOTE | 2024-04-19 03:28 | NUR ---
pt RESTING IN THE BED WITH EYES CLOSED. RR EVEN AND UNLABORED. CALL LIGHT WITHIN REACH.
[2024-04-19 06:13] VITALS: BP 162/80
--- NOTE | 2024-04-19 06:34 | NUR ---
pt RESTING ALL NIGHT, ONLY NEEDS PRN PAIN MEDICATIONS ONE DURING THE NIGHT. NO ACTIVE BOWEL TONES. DRESSING CHANGED AROUND THE LLQ LOY DRAIN. NG TUBE CONNECTED TO LOW INTERMITTENT SUCTION. IV LEAKING. NEW IV PLACED IN LEFT FOREARM. MIDLINE DRESSING HAS NO NEW DRAINAGE.
--- NOTE | 2024-04-19 07:47 | NUR ---
recieved report from nurse at [phone]. pt is currently in bed asleep with even and unlabored breathing noted. skin assessed with rn. no drainage noted. call light within reach
--- NOTE | 2024-04-19 07:54 | NUR ---
PATIENT SLEEPING IN BED AT THIS TIME. CALL LIGHT WITHIN REACH, NO FURTHER NEEDS AT THIS TIME.
--- NOTE | 2024-04-19 09:30 | NUR ---
PT REPORTED SOME PAIN IN HIS ABDOMEN AND REQUESTED PAIN MEDICATION. PT GIVEN PAIN MEDS PER DR ORDERS. NO OTHER CARES NEEDED OR REQUESTED AT THIS TIME.
[2024-04-19 09:56] VITALS: BP 151/94
--- NOTE | 2024-04-19 10:02 | NUR ---
DR HOLLAND NOTIFIED ABOUT PTS HIGH BLOOD PRESSURES AND PT USUALY TAKES 10 MG OF LISINOPRIL AT HOME. IS AWARE AND SAID HE WILL MAKE A DECISION.
--- NOTE | 2024-04-19 10:28 | NUR ---
SYSTEMS ANALYST ENGINEER INTRODUCED HERSELF TO PT. SYSTEMS ANALYST ENGINEER EMPTIED PT URINAL AND RECORDED THE OUTPUT ON PT BATHROOM DOOR. PT STATES NO FURTHER NEEDS AT THIS TIME AND CALL LIGHT IS WITHIN REACH
[2024-04-19] MEDS ORDERED: PANTOPRAZOLE SODIUM 40 MG/10 ML VIAL IV SCH (11:00)
--- NOTE | 2024-04-19 11:59 | NUR ---
PT STATES THAT PQAIN LEVEL IS 2/10 AND MIDLINE DRESSING TAKEN OFF PER DR ORDERS. NO DRAINAGE OF ANY KIND. PT IS NOW IN BED RERSTING . NO OTHER CARES NEEDED AT THIS TIME CALL LIGHT WITHIN REACH
--- NOTE | 2024-04-19 13:20 | OR ---
[facility] [address], [place] [address] Signed DATE OF OPERATION: 04/17/2024 SURGEON: Abhishek Holland MD PREOPERATIVE DIAGNOSES: 1. Adenocarcinoma moderately to poorly differentiated at prior gastrojejunostomy site. 2. Symptomatic gallstones. POSTOPERATIVE DIAGNOSES: 1. Adenocarcinoma moderately to poorly differentiated at prior gastrojejunostomy site. 2. Symptomatic gallstones. PROCEDURES: 1. Subtotal gastrectomy with Aury-en-Y gastrojejunostomy; prolonged, complicated, and difficult. 2. Resection of portion of proximal jejunal loop contiguous with the gastric neoplasm. 3. Open cholecystectomy. ASSISTANTS: 1. Karime Gray RN. 2. Bridget Sánchez RN. ANESTHESIOLOGIST: iMsael Banuelos CRNA ANESTHESIA: General endotracheal and postoperative intercostal blocks. INDICATIONS: This 68-year-old white man is a patient of VIRGEN Roberto. He was found to have significant anemia and melena requiring hospitalization. An upper endoscopy was performed, which showed an ulcerated mass adjacent to a gastrojejunostomy that he had performed at age 2. 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 He has had no real problems since that time regarding the gastrointestinal tract. Only days before his most recent upper endoscopy, he underwent colonoscopy, which was relatively normal except for some diverticula. A CT scan was performed at time of his recent upper endoscopy, which showed no evidence of metastatic disease to Electronically Signed By: ABHISHEK HOLLAND MD 04/19/24 1320 PATIENT NAME: MIKE SOSA OPERATIVE REPORT DATE OF : 51 REPORT #: [id number] PHYSICIAN: ABHISHEK HOLLAND MD PCP: ILIA PIÑA REPORT IS CONFIDENTIAL AND NOT TO BE RELEASED WITHOUT AUTHORIZATION [facility] [address], [place] [address] Signed the liver or any sign of ascites or carcinomatosis. CEA level was normal. His CT scan was performed on March 26, 2024. An Endo clip had been placed at the site of bleeding from the ulceration and was visualized on the CT scan as expected. An upper GI was recently performed to better characterize the anatomy of the situation. He has no outlet from the pylorus, but does have good outlet of the the stomach related to the gastrojejunostomy. Under the circumstances of his current findings, I have recommended subtotal gastrectomy with Aury-en-Y reconstruction. Additionally he is noted to have gallstones on the pre op ct scan. He has some biliary colic symptoms from those at this point. Concurrent cholecystectomy is offered as well. The patient and his understand the risk of bleeding, infection, various complications related to this operation and wished to proceed. FINDINGS: He had a previous left paramedian incision. A midline incision was used on this occasion, extending from the xiphoid to the umbilicus. Intra-abdominal inspection showed no evidence of ascites or carcinomatosis. There was no sign of hepatic metastasis. The neoplasm itself was palpable at the junction between the antrum and the body of the stomach in relation to the previous loop gastrojejunostomy. Quite notably the distance from the ligament of Treitz to the actual gastrojejunostomy was not long and dissection was required to fully excise the stomach in continuity with the loop jejunostomy. A Aury-en-Y reconstruction was accomplished. Quite notably there was no outlet of the stomach at the pylorus due to prior scarring. Transection of the duodenum was approximately 2 cm distal to the pylorus itself. The reconstruction included a Aury-en-Y gastrojejunostomy, which was tension-free. Mesenteric defect through which the Aury limb was passed was secured to avoid herniation in the future. The jejuno- jejunostomy anastomosis was somewhat challenging on the basis of it is short length in relation to resection. The operation was profoundly prolonged, complicated, and difficult, lasting 7 hours in time. DESCRIPTION OF PROCEDURE: The patient was brought to the operating room, given a general endotracheal anesthetic. Preoperative antibiotic Levaquin had been given. Sequential compression device stockings used and heparin subcutaneously administered. The abdomen was clipped and prepared with chlorhexidine solution and draped sterilely. An incision was made extending from the xiphoid to the umbilicus. The abdominal wall was not excessively thickened. The abdomen was entered without problem. Intra-abdominal inspection showed no sign of ascites or carcinomatosis. The round ligament of the liver was freed from Electronically Signed By: ABHISHEK HOLLAND MD 04/19/24 1320 PATIENT NAME: MIKE SOSA OPERATIVE REPORT DATE OF : 51 REPORT #: [id number] PHYSICIAN: ABHISHEK HOLLAND MD PCP: ILIA PIÑA REPORT IS CONFIDENTIAL AND NOT TO BE RELEASED WITHOUT AUTHORIZATION [address] [address] Signed the abdominal wall and later used to buttress the duodenal bulbar stump later in operation. Palpation of the liver showed no carcinomatosis. There was no sign of ascites or other signs of unresectability. Small bowel appeared normal. Palpation of the stomach did reveal a nodular area concordant to the gastrojejunal anastomosis and neoplasm itself. An upper hand retractor was used to provide exposure. Later, a Bookwalter retractor was attached to the table for use as well. The transverse colon was elevated and the very thick and bulky omentum attached to it was freed allowing for definition of the transverse mesocolon inferiorly and the greater curve of the stomach through the lesser sac. Quite obvious was the gastrojejunostomy penetrating through this area. Elevation of the transverse colon and examination of mesocolon concordant to it showed that this was a retrocolic gastrojejunostomy. The distance between the ligament of Treitz to the actual gastrojejunostomy was not very long. Palpation at the root of the mesentery corresponding to the jejunal limb was somewhat bulky, but not particularly hard and not nodular. Freeing of the omentum from the transverse colon was undertaken to the right side, ultimately mobilizing the hepatic flexure. The lateral wall of the duodenum was well visualized. The jejunal limb distally and proximally in relation to the stomach was freed as much as possible defining well the mesentery between the two limbs and anticipating resection fully to provide lymphadenectomy in that area. The left lobe of the liver was elevated and the superior aspect of the duodenal bulb identified and palpated. The pylorus was stenotic as clinically suspected. Meticulous care was made and dissecting free the pyloric area and the proximal portion of the duodenum. The lesser omentum was incised as high as possible towards the liver to provide lymphadenectomy as well. Dissection was carried to the left and with various maneuvers, all with an avascular technique, the stomach could be well defined as regard to the tumor, the gastrojejunal anastomosis and retroperitoneum. The pancreas was well visualized as well. The right gastroepiploic artery was secured with its associated lymphatic tissue as was the area cephalad to the pyloric area including the right gastric artery. Using an Endo KADEEM stapling device, the duodenum was transected 2 cm distal to the pylorus. Good security of the duodenal stump was noted. It appeared more appropriate to resect the stomach, and subsequently the gastrojejunal limb with the associated tumor than the jejunal limb first. The palpable tumor within Electronically Signed By: ABHISHEK HOLLAND MD 04/19/24 1320 PATIENT NAME: MIKE SOSA OPERATIVE REPORT DATE OF : 51 REPORT #: [id number] PHYSICIAN: ABHISHEK HOLLAND MD PCP: ILIA PIÑA REPORT IS CONFIDENTIAL AND NOT TO BE RELEASED WITHOUT AUTHORIZATION [facility] [address], [place] [address] Signed the stomach was measured for at least 5 cm cephalad after freeing and securing the left gastroepiploic arterial arcade. Similiarly the left gastric artery on the lesser curve was secured. The neoplasm was assure to be 5 cm from the line of intended transection and the palpable nasogastric tube was withdrawn to the proximal stomach. The stomach was transected with a 10 cm KADEEM stapling device. The lesser sac and portion of omentum was maintained in continuity with the stomach itself of course. This allowed isolation of the distal stomach and the the gastrojejunal anastomosis from the past. Meticulous care was provided and freeing the resected stomach in continuity with the remaining loop jejunostomy. At the root of this was a bulky mass, which represented either lipomatous mass or possibly metastatic disease. Meticulous care was made in dissecting this out in continuity with the jejunal limb. Care was taken particularly in its relationship to the superior mesenteric artery and vein. No injury to those structures occurred; however, there were a number of clips and so forth required to secure the bulky mesenteric mass with the specimen for resection. The distal limb of jejunum in relation to the gastrojejunal anastomosis from the past was transected with a KADEEM stapling device. An Endo KADEEM stapling device was used to transect the jejunum of the more proximal portion ( not far from the ligament of Treitz itself.) This allowed the specimen to be offloaded, photographed and examined more fully. The Aury limb was easily mobilized through a defect in the transverse mesocolon to lie in continuity with the stomach. An end to side jejuno- jejunal anastomosis was undertaken in a two-layer technique of interrupted 3-0 silk suture for the serosa and interrupted 3-0 Vicryl for the mucosal layer. Special and meticulous care was taken in this anastomosis as there was little remaining proximal jejunum in relation to the ligament of Trietze. Attention was turned towards the gastrojejunal anastomosis. The jejunal limb staple line had been oversewn with interrupted 3-0 sikl in a lembert technique. Similarly, the the staple line of the stomach was additionally secured with 3-0 interrupted silk suture. An side -to-side gastrojejunal aury limb anastomosis was then undertaken in a two-layer technique of interrupted 3-0 silk suture for the serosal layer and interrupted 3-0 Vicryl for the mucosal layer. A wide anastomosis was accomplished. Irrigation was undertaken. The duodenal stump from transection previously was additionally closed with interrupted 3-0 silk suture in a Lembert configuration and a portion of the round ligament was secured to the area to bolster the closure, though it did not appear to be of hazard for leakage or problem. Electronically Signed By: ABHISHEK HOLLAND MD 04/19/24 3855 PATIENT NAME: MIKE SOSA OPERATIVE REPORT DATE OF : 51 REPORT #: [id number] PHYSICIAN: ABHISHEK HOLLAND MD PCP: ILIA PIÑA REPORT IS CONFIDENTIAL AND NOT TO BE RELEASED WITHOUT AUTHORIZATION [facility] [address], [place] [address] Signed The transverse mesocolonic defect was secured with interrupted 3-0 silk suture and the Aury limb passing through it was secured to the mesocolon with interrupted 3-0 silk suture obliterating any defect for herniation in the future. Irrigation was undertaken. A drain was placed in through the left lateral abdominal wall near the jejuno-jejunal anastomotic area. Attention was turned towards the gallbladder. 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 Bookwalter retractor was manipulated into place and the upper hand retractor removed. The gallbladder was chronically inflamed, quite markedly elongated and a palpable stone was noted within the gallbladder. The gallbladder was grasped with a ring clamp and the peritoneum was incised with electrocautery, dissecting it free from the liver bed fully. Small clips were applied to the vascular branches as necessary. The cystic duct was relatively normal in size and was secured with two clips. Gallbladder was excised and opened on the back table to have a large irregular stone and no sign of mucosal neoplasm. Irrigation was undertaken in the subhepatic and perihepatic spaces securing hemostasis. Through a right-sided stab incision, a 7 mm flat Liban drain was placed through the area of the hepatic bed and onto the underlying surface of the exposed pancreas. Attention was then turned towards excision of omentum, which corresponded to the stomach, which had been freed previously. A generous portion of omentum was resected. Irrigation undertaken more fully. All the anastomoses were re-inspected and found to be healthy and plans made for closure. A drain was placed additionally in the left abdominal area in the general vicinity of the jejunojejuntostomy . The midline fascia was reapproximated with running bidirectional #1 PDS. Subcutaneous tissue was irrigated and the skin closed with running subcuticular 3-0 Vicryl. Steri-Strips were applied as was an Acticoat dressing. The operation was prolonged, complicated, and difficult lasting 7-1/2 hours, was accomplished safely. Blood loss was less than 150 mL. MD WALT Meraz/MODL /[id number] Electronically Signed By: ABHISHEK HOLLAND MD 04/19/24 1320 PATIENT NAME: MIKE SOSA OPERATIVE REPORT DATE OF : 51 REPORT #: [id number] PHYSICIAN: ABHISHEK HOLLAND MD PCP: ILIA PIÑA REPORT IS CONFIDENTIAL AND NOT TO BE RELEASED WITHOUT AUTHORIZATION [address] [address] Signed cc: VIRGEN Roberto Copies: IILA PIÑA ~ Electronically Signed By: ABHISHEK HOLLAND MD 04/19/24 1320 PATIENT NAME: SHEILAMIKE Neena OPERATIVE REPORT DATE OF : 51 REPORT #: [id number] PHYSICIAN: ABHISHEK HOLLAND MD PCP: ILIA PIÑA REPORT IS CONFIDENTIAL AND NOT TO BE RELEASED WITHOUT AUTHORIZATION
[2024-04-19 13:22] VITALS: BP 129/87
[2024-04-19] MEDS ORDERED: KETOROLAC TROMETHAMINE 30 MG/ML VIAL IV SCH (14:00)
[2024-04-19] MEDS ORDERED: ACETAMINOPHEN 1,000 MG/100 ML VIAL IV SCH ×2 (14:00)
--- NOTE | 2024-04-19 16:19 | NUR ---
PT AMBULATED FIVE LAPS AROUND UNIT, TOLERATED WELL. BACK TO BED. NG CLAMPED TEMP FOR SCHEDULED CARAFATE. SCDS PLACED. PT DENIES PAIN, NAUSEA OR FURTHER NEEDS AT THIS TIME. CALL LIGHT IN REACH.
--- NOTE | 2024-04-19 19:31 | NUR ---
REPORT RECEIVED FROM DAY SHIFT RN. PT LYING IN BED ALERT AND ORIENTED. DENIES NEEDS. WHITE BOARD UPDATED. CALL LIGHT IN REACH.
[2024-04-19 20:04] VITALS: BP 158/78
--- NOTE | 2024-04-19 20:37 | NUR ---
EVENING ASSESSMENT COMPLETE. SCHEDULED MEDS ADMIN PER EMAR. PT REPORTS LOWER BACK/ABD PAIN 02/28. SCHEDULED MEDS GIVEN. MIDLINE ABD INCISION WITH STERI STRIPS INTACT. OLD DRAINAGE NOTED. BOWEL TONES ACTIVE. ABD SOFT. PT DENIES FLATUS. DENIES NAUSEA. VERNA X 2 WITH SCANT AMOUNT SEROSANG DRAINAGE. NGT WITH SMALL AMOUNT FOAMY DRAINAGE. NGT CLAMPED FOR QUALIFICATIONS EXAMINER. CLEAR LIQUIDS AT BEDSIDE. PT DENIES QUESTIONS OR CONCERNS. CALL LIGHT IN REACH.
--- NOTE | 2024-04-19 21:10 | NUR ---
ASSIST PT TO AMBULATE IN THE HALLWAY, 5 LAPS IN THE M/S GRULLON, PT BACK TO ROOM
[2024-04-20] VITALS (9 sets, daily range): BP systolic 129–158; BP diastolic 77–92
--- NOTE | 2024-04-20 00:28 | NUR ---
PT RESTING IN BED WITH EYES CLOSED. RESPIRATIONS EVEN. CALL LIGHT IN REACH.
--- NOTE | 2024-04-20 01:50 | NUR ---
PT RESTING IN BED WITH EYES CLOSED. AWAKENS EASILY. PT REPORTS ABD/LOWER BACK PAIN 12/29. SCHEDULED MEDS ADMIN PER EMAR. DENIES NAUSEA. NGT SECUREMENT DEVICE REPLACED. NGT PATENT WITH SMALL AMOUNT FOAMY BROWN DRAINAGE. ABD ASSESSMENT UNCHANGED. PT DENIES FLATUS. VERNA #1 WITH 10 ML SEROSANG DRAINAGE. VERNA #2 WITH 30 ML SEROSANG DRAINAGE. NO FURTHER NEEDS. CALL LIGHT IN REACH.
--- NOTE | 2024-04-20 03:47 | NUR ---
PT REPORTS CONTINUED ABD/BACK PAIN 12/29. PRN FOR PAIN ADMIN PER EMAR. URINAL EMPTIED. NO FURTHER NEEDS.
--- NOTE | 2024-04-20 05:20 | NUR ---
Provided Pt with warm blanket and fresh ice water. Call light left in reach. No other needs expressed by Pt.
[2024-04-20 05:33] LABS: BASOPHILS 0.6 % (0-2); EOSINOPHILS 0.5 % (0-6); HEMATOCRIT 24.2 % (35.0-50.0); LYMPHOCYTES 10.1 % (24-44); MCH 26.4 (27-36); MCHC 33.1 g/dl (30-36); MCV 79.9 fl (81-99); MONOCYTES 7.2 % (0-12); NEUTROPHILS 81.6 % (39-80); PLATELET COUNT 278 K/uL (140-440); RBC 3.02 M/ul (4.3-5.7); RDW 16.2 (10.5-15.0)
--- NOTE | 2024-04-20 05:41 | NUR ---
LAB IN ROOM FOR MORNING DRAW. VS AND I&O OBTAINED. PT REPORTS PAIN IMPROVED, WAS ABLE TO GET SOME SLEEP. WALL SUCTION OFF AT THIS TIME FOR PO RUBY ENGINEER. IV ABX INFUSING PER ORDER. RLQ VERNA WITH 10 ML SEROSANG DRAINAGE. LLQ VERNA WITH 20 ML SEROSANGE DRAINAGE. NGT WITH 100 ML DARK FOAMY DRAINAGE THIS SHIFT. PT DENIES NEEDS AT THIS TIME. CALL LIGHT IN REACH.
[2024-04-20 06:04] LABS: ALBUMIN 2.4 g/dL (3.4-5.0); ALBUMIN/GLOBULIN RATIO 0.83 (1.1-2.4); ANION GAP 10.3 (7-21); BILIRUBIN, TOTAL 0.6 ng/dL (0.2-1.0); BUN/CREATININE RATIO 14.28 (6.0-28.6); CALCIUM 7.7 mg/dL (8.5-10.1); CREATININE, SERUM 0.91 mg/dL (0.70-1.30); POTASSIUM 3.3 mmol/L (3.5-5.1); PROTEIN, TOTAL 5.3 g/dL (6.4-8.2)
--- NOTE | 2024-04-20 07:47 | NUR ---
Board has been updated and call light has been placed within reach.
--- NOTE | 2024-04-20 08:47 | NUR ---
PT SCHEDULED MEDS GIVEN, SEE EMAR. PT DENIES PAIN AT THIS TIME. SITTING UP AT EDGE OF BED FOR CLEAR LIQUIDS. IV PATENT. NG REMAINS TO LIWS. PT DENIES FURTHER NEEDS AT THIS TIME. CALL LIGHT IN REACH.
--- NOTE | 2024-04-20 11:16 | NUR ---
PT AMBULATED UNIT x5 AND THEN TO SHOWER, TOLERATED WELL. UP TO RECLINER. PT DENIES PAIN AT THIS TIME. ACTIVE BOWEL TONES. PT DENIES PASSING GAS OR BM. MIDLINE WITH RONA, WELL APPROXIMATED. RIGHT VERNA WITH 30 ML SEROSANG DRAININAGE, LEFT WITH 10ML SEROSANG DRAINAGE. DRESSINGS TO BOTH VERNA SITES CHANGED. NG TO LIWS. MINIMAL OUTPUT. IV PATENT AND RUNNING FLUIDS. PT DENIES FURTHER NEEDS AT THIS TIME. CALL LIGHT IN REACH.
--- NOTE | 2024-04-20 12:18 | NUR ---
DR HOLLAND IN ROOM ROUNDING ON PT. PT DENIES PAIN OR NEEDS AT THIS TIME. CALL LIGHT IN REACH
[2024-04-20] MEDS ORDERED: POTASSIUM CHLORIDE 10 MEQ/100 ML BAG IV SCH (12:30)
--- NOTE | 2024-04-20 15:23 | NUR ---
PT RESTING IN BED, STATING HE WOULD LIKE TO REST, THEN WILL AMBULATE HALLWAY. CALL LIGHT IN REACH.
[2024-04-20] MEDS ORDERED: POTASSIUM CHLORIDE 100 ML IV ONE (16:39)
--- NOTE | 2024-04-20 17:11 | NUR ---
PT AMBULATED IN HALLWAY. INTO RECLINER. DENIES PAIN OR NEEDS AT THIS TIME. CALL LIGHT IN REACH.
--- NOTE | 2024-04-20 19:19 | NUR ---
REPORT RECEIVED FROM DAY SHIFT RN. PT SITTING ON COUCH ALERT AND ORIENTED. DENIES NEEDS. WHITE BOARD UPDATED. CALL LIGHT IN REACH.
--- NOTE | 2024-04-20 20:16 | NUR ---
EVENING ASSESSMENT COMPLETE. SCHEDULED MEDS ADMIN PER EMAR. SCHEDULED PAIN MEDS ADMIN FOR ABD PAIN. NO C/O NAUSEA. MIDLINE ABD INCISION WITH STERI STRIPS INTACT. OLD DRAINAGE NOTED. ABD VERNA X2 WITH SEROSANG DRAINAGE. BOWEL TONES ACTIVE. ABD SOFT. PT DENIES FLATUS. VS AND I&O OBTAINED, WNL. PT DENIES QUESTIONS OR CONCERNS. CALL LIGHT IN REACH.
--- NOTE | 2024-04-20 20:24 | NUR ---
PT AMB IN GRULLON INDEPENDENTLY. GAIT STEADY. ALBERT WELL.
--- NOTE | 2024-04-20 22:29 | NUR ---
FAMILY LEAVING FOR THE EVENING. PT REPORTS ABD CLEMENTE 12/01. PRN FOR PAIN ADMIN PER EMAR. NO FURTHER NEEDS.
--- NOTE | 2024-04-21 02:00 | NUR ---
IN FOR SCHEDULED PAIN PRECISION INSPECTOR. PT DENIES "REAL PAIN" DOES REPORT SOME "TENDERNESS" NO C/O NAUSEA. BOWEL TONES ACTIVE. ABD SOFT. PT DENIES FLATUS OR BM. VERNA LLQ EMPTIED OF 40 ML SEROSANG DRAINAGE. SCANT AMOUNT IN RLQ VERNA. MIDLINE ABD INCISION WITH STERI STRIPS INTACT. OLD DRAINAGE NOTED. PT TAKING SIPS OF WATER, FRESH PROVIDED. NO FURTHER NEEDS. CALL LIGHT IN REACH.
[2024-04-21 02:54] VITALS: BP 153/77
--- NOTE | 2024-04-21 04:15 | NUR ---
PT RESTING IN BED ON RIGHT SIDE. EYES CLOSED. RESPIRATIONS EVEN.
[2024-04-21 06:28] VITALS: BP 142/77
--- NOTE | 2024-04-21 06:49 | NUR ---
PT RESTING IN BED WITH EYES CLOSED. AWAKENS EASILY. VS AND I&O OBTAINED. VERNA X 2 WITH SEROSANG DRAINAGE. MIDLINE ABD INCISION WITH STERI STRIPS INTACT. OLD DRAINAGE NOTED. PT DENIES FLATUS OR BM. PT DENIES PAIN OR NAUSEA. NO FURTHER NEEDS AT THIS TIME. CALL LIGHT IN REACH.
--- NOTE | 2024-04-21 07:24 | NUR ---
PT ALERT AND INTERACTIVE DURING SHIFT REPORT. UP TO TOILET INDEPENDANTLY STATES HE FEELS LIKE HIS BOWELS NEED TO MOVE, MOVES A SMALL AMOUNT OF LOOSE STOOL. RATES ABDOMINAL PAIN 1/10 TYLENOL JUST ADMINISTERED. PT VERBALIZES UNDERSTANDING OF NEED TO AMBULATE SEVERAL TIMES THIS SHIFT. FRESH H20 TO BEDSIDE PT DENIES FURTHER NEEDS
--- NOTE | 2024-04-21 08:05 | NUR ---
CLEAR LIQUID TRAY SERVED, PT REPORTS HE IS DRINKING CAUTIOUSLY. STATES HE FEELS HUNGRY FOR THE FIRST TIME TODAY. ASSESSMENT CONPLETE
--- NOTE | 2024-04-21 08:11 | NUR ---
PATIENT RESTING IN BED AT THIS TIME. CALL LIGHT WITHIN REACH, NO FURTHER NEEDS AT THIS TIME.
[2024-04-21 09:34] VITALS: BP 140/77
--- NOTE | 2024-04-21 09:58 | NUR ---
DR HOLLAND IN TO SEE PT DISCUSSED HEALING AND PLAN GOING FORWARD, ALL QUESTIONS ANSWERED.
--- NOTE | 2024-04-21 09:59 | NUR ---
PATIENT IN BED AT THIS TIME. VITLAS AND I&O'S CHARTED. CALL LIGHT WITHIN REACH, NO FURTHER NEEDS AT THIS TIME.
--- NOTE | 2024-04-21 10:02 | NUR ---
PT UP AND AMBULATES THE GRULLON SEVERAL LAPS. STATES HE FEELS A LITTLE LIGHT HEADED WILL SIT IN THE CHAIR AND REST. AGREES TO REPORT ANY INCREASED OR FUTHER SYMPTOMS
--- NOTE | 2024-04-21 11:16 | NUR ---
PT AGREES LIGHT HEADEDNESS PASSED QUICKLY. REMAINS UP IN THE CHAIR DENIES NEEDS AT THIS TIME. AGREES HE IS LOOKING FORWARD TO LUNCH DIET ADVANCED TO FULL LIQUID
--- NOTE | 2024-04-21 11:29 | NUR ---
VISITED DURING SPIRITUAL CARE ROUNDS. PT APPEARED TO BE SLEEPING. DID NOT DISTURB. PROVIDED PRAYER.
--- NOTE | 2024-04-21 12:06 | NUR ---
PATIENT IN CHAIR AT THIS TIME. APPAREL MANUFACTURE INSTRUCTOR EMPTIED BOTH VERNA DRAINS. CALL LIGHT WITHIN REACH, NO FURTHER NEEDS AT THIS TIME.
[2024-04-21 14:06] VITALS: BP 124/67
--- NOTE | 2024-04-21 14:35 | NUR ---
PT TO THE RESTROOM SEVERAL TIMES THIS SHIFT PASSING SMALL AMOUNTS OF LOOSE STOOL. PT HAS ABMULATED SEVERAL TIMES WELL SITTING IN RECLINER. RESTING IN BED NOW DOING A PUZZLE. DENIES DISCOMFORTS. HAD FULL LIQUIDS FOR LUNCH, WELL TOLERATED. PT DENIES NEEDS AT THIS TIME
--- NOTE | 2024-04-21 15:21 | NUR ---
PT UP AMBULATING THE GRULLON
--- NOTE | 2024-04-21 16:54 | NUR ---
PT GIVEN PUDDING PER REQUEST. CONTINUES TO TOLERATE PO INTAKE WITH NO C/O PAIN OR NAUSEA. FAMILY PRESENT X5 PT VISITING CHEERFULLY DENIES NEEDS FROM THIS CREAM HAULER
--- NOTE | 2024-04-21 17:54 | NUR ---
PT HAD COMPANY FOR SEVERAL HOURS ALONE NOW HAS EATEN ENTIRE EVENING MEAL. DENIES NAUSEA OR DISCOMFORT STATES "EATING HAS GONE WELL TODAY" PT HAS AMBULATED SEVERAL TIMES AND DOES AT LEAST 5 LAPS EACH TIME.
[2024-04-21] MEDS ORDERED: ACETAMINOPHEN 500 MG TAB PO PRN (18:00)
[2024-04-21 18:16] VITALS: BP 136/79
--- NOTE | 2024-04-21 19:12 | NUR ---
REPORT RECEIVED FROM DAY SHIFT RN. PT LYING IN BED ALERT AND ORIENTED. DENIES NEEDS. WHITE BOARD UPDATED. CALL LIGHT IN REACH.
[2024-04-21 19:55] VITALS: BP 150/75
--- NOTE | 2024-04-21 20:08 | NUR ---
EVENING ASSESSMENT COMPLETE. SCHEDULED MEDS ADMIN PER EMAR. PT REPORTS ABD PAIN /10. PRN FOR PAIN ADMIN PER EMAR. PT DENIES NAUSEA. BOWEL TONES ACTIVE. ABD SOFT. MIDLINE ABD INCISION WELL APPROXIMATED WITH STERI STRIPS INTACT. OLD DRAINAGE NOTED. VERNA X 2 WITH SEROSANG DRAINAGE. DRESSING TO [facility] VERNA CHANGED DUE TO LEAKING SEROSANG DRAINAGE. NO FURTHER NEEDS AT THIS TIME. PT UP TO RAJ GRULLON INDEPENDENTLY.
--- NOTE | 2024-04-21 22:36 | NUR ---
PT RESTING IN BED WITH EYES CLOSED. RESPIRATIONS EVEN. CALL LIGHT IN REACH.
--- NOTE | 2024-04-22 01:43 | NUR ---
IV PUMP ALARMING. NEW BAG IVF INFUSING PER ORDER. PRN FOR 2/10 ABD PAIN ADMIN PER REQUEST. PT UP TO BR TO VOID. URINAL EMPTIED. ABD ASSESSMENT UNCHANGED. VERNA X 2 WITH SEROSANG DRAINAGE. NO FURTHER NEEDS. CALL LIGHT IN REACH.
--- NOTE | 2024-04-22 03:31 | NUR ---
PT RESTING IN BED WITH EYES CLOSED. RESPIRATIONS EVEN. CALL LIGHT IN REACH.
[2024-04-22 06:16] VITALS: BP 145/74
--- NOTE | 2024-04-22 06:34 | NUR ---
VS AND I&O OBTAINED. PT DENIES PAIN OR NAUSEA. BOWEL TONES ACTIVE. PT REPORTS FLATUS. NO BM THIS SHIFT. MIDLINE ABD INCISION WELL APPROXIMATED WITH STERI STRIPS INTACT. OLD DRAINAGE NOTED. PT VOIDING QS DILUTE URINE. RLQ VERNA WITH 95 ML SEROSANG DRAINAGE AND LLQ WITH 138 ML SEROSANG DRAINAGE THIS SHIFT. PT DENIES NEEDS. CALL LIGHT IN REACH.
--- NOTE | 2024-04-22 08:16 | NUR ---
PATIENT IN BED AT THIS TIME. CALL LIGHT WITHIN REACH, NO FURTHER NEEDS AT THIS TIME.
--- NOTE | 2024-04-22 08:32 | NUR ---
Tylenol 1000mg po admin at this time for reported 4/10 incisional pain.
[2024-04-22] MEDS ORDERED: PANTOPRAZOLE SODIUM 40 MG TABEC PO SCH (09:00)
--- NOTE | 2024-04-22 09:30 | NUR ---
Patient tolerating low fiber diet well. Patient reports passing flatus and loose stool. Pt ambulating in hallways intermittently. No needs at this time, personal supplies and call light within reach.
[2024-04-22 09:42] VITALS: BP 140/84
--- NOTE | 2024-04-22 10:38 | NUR ---
PATIENT IN BED AT THIS TIME. CALL LIGHT WITHIN REACH, NO FURTHER NEEDS AT THIS TIME.
--- NOTE | 2024-04-22 11:44 | NUR ---
Patient did five laps in hallway, tolerated well.
--- NOTE | 2024-04-22 13:33 | NUR ---
PATIENT SITTING UP IN RECLINER EATING LUNCH. HE REPORTS MILD PAIN AT ABDOMEN, HE DOES NOT WANT ANY PAIN COVERAGE OTHER THAN TYLENOL AT 1400 WHEN AVAILABLE NEXT. HE IS VERY SPECIFIC ABOUT IS PAIN MANAGEMENT PLAN, HE SAID HE WILL TAKE THE TORDOL THIS EVENING SO HE CAN SLEEP BETTER TONIGHT.
--- NOTE | 2024-04-22 14:08 | NUR ---
BRYCE INTO ROOM NOW FOR DIETARY CONSULT.
[2024-04-22 14:15] VITALS: BP 177/85
--- NOTE | 2024-04-22 14:18 | NUR ---
PATIENT REPORTS FEELING MORE NAUSEA, ZOFRAN 4MG IV ADMINISTERED AT THIS TIME.
[2024-04-22] MEDS ORDERED: METOCLOPRAMIDE HCL 10 MG/2 ML SDV IV PRN (14:30)
[2024-04-22 14:51] LABS: ANION GAP 10.5 (7-21); CALCIUM 8.3 mg/dL (8.5-10.1); CREATININE, SERUM 0.9 mg/dL (0.70-1.30); MAGNESIUM 1.9 mg/dL (1.8-2.4); POTASSIUM 3.5 mmol/L (3.5-5.1)
--- NOTE | 2024-04-22 14:58 | NUR ---
PATIENT CALLED NURSES STATION TO REPORT CONTINUED NAUSEA, REGLAN 10MG IV ADMINISTERED PER NEW ORDERS FROM
--- NOTE | 2024-04-22 15:26 | NUR ---
CONSULT RECEIVED FOR DIET EDUCATION FOR POST-PARTIAL GASTRECTOMY. PATIENT'S WAS PRESENT. PATIENT STATED THAT HE FEELS TOO FULL FROM LUNCH. DR. HOLLAND CHANGED HIS DIET BACK TO FULL LIQUIDS. I GAVE PATIENT AND HIS A HANDOUT FROM THE NUTRITION CARE MANUAL ON NUTRITION THERAPY FOR POST-GASTRIC SURGERY. EXPLAINED THAT HE WILL NEED TO EAT SMALL MEALS/SNACKS 6 TO 8 TIMES A DAY. DRINK LIQUIDS BETWEEN MEALS OR 30 TO 60 MINUTES AFTER A MEAL. LIMIT CAFFEINE. LIMIT FIBER TO 13 GRAMS OR LESS PER DAY. INCLUDE LOW-FAT PROTEIN AT EACH MEAL, EXAMPLES PROVIDED. REVIEWED LOWER FIBER FOODS THAT ARE ALLOWED AND WHICH FOODS TO AVOID. PROTEIN DRINKS WITH 30 GRAMS OF PROTEIN AND NO ADDED SUGAR ARE FINE AND I WROTE DOWN SOME BRANDS HE CAN FIND LOCALLY. HE IS NOT A BIG MILK DRINKER BUT SO FAR SEEMS TO TOLERATE YOGURT AND PUDDING. ONE OTHER BIG FACTOR IS FOR HIM TO AVOID LARGE AMOUNTS OF FOODS OR DRINKS WITH ADDED SUGAR, ESPECIALLY ON AN EMPTY STOMACH, BECAUSE THIS CAN CAUSE DUMPING SYNDROME. HE AND HIS HAVE GOOD UNDERSTANDING. MY NAME, OFFICE # AND EMAIL ADDRESS ARE ON THE HANDOUT IN CASE THEY HAVE QUESTIONS WHEN THEY GET HOME.
--- NOTE | 2024-04-22 16:15 | NUR ---
PATIENT REPORTS NAUSEA HAS RESOLVED AT THIS ITME, BACK INTO ROOM TO DISCUSS PLAN OF CARE AND LABS.
--- NOTE | 2024-04-22 16:29 | NUR ---
PATIENT IN BED AT THIS TIME. CALL LIGHT WITHIN REACH, NO FURTHER NEEDS AT THIS TIME.
[2024-04-22 18:24] VITALS: BP 159/80
--- NOTE | 2024-04-22 19:20 | NUR ---
REPORT RECEIVED FROM DAY SHIFT RN. PT SITTING ON SIDE OF BED ALERT AND ORIENTED. FAMILY IN ROOM. DENIES NEEDS. WHITE BOARD UPDATED. CALL LIGHT IN REACH.
[2024-04-22] MEDS ORDERED: IBUPROFEN 600 MG TAB PO PRN (20:30)
[2024-04-22 21:36] VITALS: BP 167/82
--- NOTE | 2024-04-22 22:10 | NUR ---
EVENING ASSESSMENT COMPLETE. SCHEDULED MEDS ADMIN PER EMAR. PT REPORTS ABD PAIN /. PRN FOR PAIN ADMIN PER EMAR. PT ALSO REPORTS FELLING "BLOATED". PRN REGLAN ADMIN PER EMAR. MIDLINE ABD INCISION WELL APPROXIMATED WITH STERI STRIPS INTACT. OLD DRAINAGE NOTED. ABD SOFT. BOWEL TONES ACTIVE. PT DENIES FLATUS. VERNA X 2 WITH SEROUS DRAINAGE. PT DENIES FURTHER NEEDS. CALL LIGHT IN REACH.
[2024-04-23] VITALS (10 sets, daily range): BP systolic 137–149; BP diastolic 77–81
--- NOTE | 2024-04-23 01:29 | NUR ---
PT RESTING IN BED ON RIGHT SIDE. EYES CLOSED. RESPIRATIONS EVEN. CALL LIGHT IN REACH.
--- NOTE | 2024-04-23 03:40 | NUR ---
PT RESTING IN BED WITH EYES CLOSED. RESPIRATIONS EVEN. CALL LIGHT IN REACH.
--- NOTE | 2024-04-23 05:24 | NUR ---
VS AND I&O OBTAINED. PT UP TO BR TO VOID AND HAVE SMALL SEMI FORMED BM AND "PASS GAS" BACK TO BED, ALBERT WELL. ABD VERNA X 2 WITH SEROUS DRAINAGE. BOWEL TONES ACTIVE. ABD SOFT. PT DENIES PAIN OR NAUSEA. REPORTS HE SLEPT WELL AND "FEELS GOOD" THIS AM. SCHEDULED MEDS ADMIN PER EMAR. NO FURTHER NEEDS.
--- NOTE | 2024-04-23 07:05 | NUR ---
REPORT RECEIVED FROM TENDERIZER TENDER ZAHRA ORTIZ. PATIENT IS LYING IN BED WITH EYES CLOSED AND RESPIRATIONS ARE EVEN AND UNLABORED. CALL LIGHT AND PERSONAL BELONGINGS ARE WITHIN REACH.
--- NOTE | 2024-04-23 08:18 | NUR ---
PATIENT IN BED AT THIS TIME. CALL LIGHT WITHIN REACH, NO FURTHER NEEDS AT THIS TIME.
--- NOTE | 2024-04-23 08:20 | NUR ---
0900 MEDICATIONS ADMINISTERED PER THE EMAR. FULL ASSESSMENT COMPLETE AND DOCUMENTED IN THE CHART. PATIENT IS ALERT AND ORIENTED TIMES FOUR. PATIENT WITH NO COMPLAINTS OF PAIN AT THIS TIME. LUNG SOUNDS ARE CLEAR IN ALL LUNG VILLALBA BILATERALLY. PATIENT IS ON ROOM AIR. CARDIAC WITH NORMAL S1 AND S2 ON AUSCULTATION. RADIAL AND PEDAL PULSES ARE STRONG BILATERALLY. SENSATION INTACT AND WITH NO COMPLAINTS OF NUMBNESS AND TINGLING. BOWEL TONES ARE ACTIVE IN ALL FOUR QUADRANTS. PATIENT IS ON A FULL LIQUID DIET. MIDLINE ABDOMEN WITH RONA AND STERI STRIPS. DRESSING WITH DRY DRAINAGE NOTED. LEFT SIDE AND RIGHT SIDE VERNA DRAINS WITH SEROUS DRAINAGE NOTED. VERNA DRAIN DRESSINGS ARE CLEAN, DRY, AND INTACT. PATIENT LAST BOWEL MOVEMENT WAS 04/23/2024. IV FLUSHED WITH 10 ML NORMAL SALINE. LR IS INFUSING AT 75 ML/HR. IV DRESSING IS CLEAN, DRY, AND INTACT. PATIENT STATED NO FURTHER NEEDS AT THIS TIME. CALL LIGHT AND PERSONAL BELONGINGS ARE WITHIN REACH.
--- NOTE | 2024-04-23 10:03 | NUR ---
PALLAVIT IN BED AT THIS TIME. VITALS AND I&O'S CHARTED. CALL LIGHT WITHIN REACH, NO FURTHER NEEDS AT THIS TIME.
[2024-04-23] MEDS ORDERED: MULTIVITAMINS THERAPEUTIC 1 EA TAB PO SCH (11:07)
[2024-04-23] MEDS ORDERED: ASCORBIC ACID 250 MG TABLET PO SCH (11:08)
--- NOTE | 2024-04-23 11:38 | NUR ---
IV FLUSHED WITH 10 ML NORMAL SALINE AND IS NOW SALINE LOCKED. IV DRESSING IS CLEAN, DRY, AND INTACT. 1100 MEDICATIONS ADMINISTERED PER THE EMAR. PATIENT IS GETTING SET UP TO TAKE A SHOWER AT THIS TIME. A FEW CRACKERS AND FRESH ICE WATER ARE SITTING ON THE BEDSIDE TABLE. PATIENT STATED NO FURTHER NEEDS AT THIS TIME. CALL LIGHT AND PERSONAL BELONGINGS ARE WITHIN REACH.
--- NOTE | 2024-04-23 12:52 | NUR ---
REFINISH TECHNICIAN GOT PATIENT READY FOR SHOWER. REFINISH TECHNICIAN PROVIDED PATIENT WITH TOWELS AND WASHCLOTH. PATIENTS IV WAS DISCONNECTED BY RN AND THEN TAPED BY REFINISH TECHNICIAN. PATIENT WAS TOLD TO PULL CALL LIGHT IF HE NEEDS. NO FURTHER NEEDS AT THIS TIME.
[2024-04-23] MEDS ORDERED: METOCLOPRAMIDE HCL 10 MG TAB PO SCH (13:00)
--- NOTE | 2024-04-23 13:28 | NUR ---
VISITED DURING SPIRITUAL CARE ROUNDS. PT IN GOOD SPIRITS, ANTICIPATING DISCHARGE TOMORROW, EXHIBITED STRONG CLIVE RESOURCES. PROVIDED SUPPORTIVE PRESENCE, HOSPITALITY, STATE HISTORICAL SOCIETY DIRECTOR EDUCATION, PRAYER. PT EXPRESSED GRATITUDE.
--- NOTE | 2024-04-23 15:10 | NUR ---
PT UP TO CHAIR WORKING ON MODEL CAR BUILDING. PT DENIES PAIN AT THIS TIME. ABDOMEN SOFT, NON-TENDER, BOWEL TONES REMAIN ACTIVE. PT TOLERATING FULL LIQUID DIET WELL. VERNA DRAINS REMAIN PRESENT IN R AND L SIDE, SEROUS FLUID EMPTIED FROM DRAINS. PT STATES NO NEEDS AT THIS TIME, CALL LIGHT WITHIN REACH.
--- NOTE | 2024-04-23 15:25 | NUR ---
PATIENT IN CHAIR AT THIS TIME. VITALS AND I&O'S CHARTED AT 1400. CALL LIGHT WITHIN REACH, NO FURTHER NEEDS AT THIS TIME.
[2024-04-23] MEDS ORDERED: FERROUS SULFATE 325 MG TAB PO SCH (17:00)
--- NOTE | 2024-04-23 18:43 | NUR ---
PT UP TO CHAIR, STATES NO NEEDS AT THIS TIME. PT TOLERATES CRACKERS WELL ALONG WITH FULL LIQUID DIET. CALL LIGHT WITHIN REACH.
--- NOTE | 2024-04-23 19:46 | NUR ---
REPORT RECEIVED FROM DAY NURSE. PATIENT RESTING IN BED. DAY SHIFT RN AND THIS RN ASSESSED PATIENT'S MIDLINE INCISION AND BOTH VERNA DRAINS. NO S/SX OF INFECTION SITE APPEARS TO BE DOING WELL. PATIENT REQUESTING CRACKERS. CRACKERS GIVEN. NO FURTHER NEEDS AT THIS TIME. CALL LIGHT WITHIN REACH.
--- NOTE | 2024-04-23 21:12 | NUR ---
ULTRASOUND TESTER OBTIANED VITALS AND I&O. ULTRASOUND TESTER GAVE PT CRACKERS AND REFILLED ICE WATER. PT STATES NO FURTHER NEEDS AT THIS TIME. CALL LIGHT WITHIN REACH.
--- NOTE | 2024-04-23 21:15 | NUR ---
PATIENT RESTING IN BED. DENIES ANY PAIN OR DISCOMFORT AT THIS TIME. HS MEDICATIONS GIVEN. MIDLINE INCISION REMAINS WELL APPROXIMATED WITH NO DRAINAGE, NO S/SX OF INFECTION NOTED. VERNA DRAINS EMPTIED SEROUS FLUID DRAINING FROM BILATERAL DRAINS, BOWEL TONES ACTIVE X 4 QUADRANTS. LUNGS CTA. NO FURTHER NEEDS AT THIS TIME. CALL LIGHT WITHIN REACH.
--- NOTE | 2024-04-23 23:15 | NUR ---
PATIENT RESTING IN BED WITH EYES CLOSED. RESPIRATIONS EVEN AND UNLABORED. CALL LIGHT WITHIN REACH.
--- NOTE | 2024-04-23 23:23 | NUR ---
CALL LIGHT ANSWERED. PATIENT C/O PAIN. PRN GIVEN. URINAL EMPTIED. NO FURTHER NEEDS AT THIS TIME.
--- NOTE | 2024-04-24 00:30 | NUR ---
PATIENT RESTING IN BED WITH EYES CLOSED. RESPIRATIONS EVEN AND UNLABORED. CALL LIGHT WITHIN REACH.
--- NOTE | 2024-04-24 02:26 | NUR ---
RN CHECKING IN ON PATIENT FOR ROUNDS. PATIENT GETTING OUT OF BED TO GO TO THE BATHROOM. C/O RESTLESS LEGS. REQUESTING SALTINE CCRACKERS. CRACKERS GIVEN. DENIES ANY PAIN AT THIS TIME. NO FURTHER NEEDS. CALL LIGHT WITHIN REACH.
--- NOTE | 2024-04-24 04:14 | NUR ---
RN DOING ROUNDS. PATIENT RESTLESS IN BED. DENIES ANY NEEDS, STATED, " I JUST AM NOT ABLE TO SLEEP TONIGHT, THIS HAPPENED A FEW NIGHTS AGO ALSO." CALL LIGHT WITHIN REACH.
[2024-04-24 05:23] VITALS: BP 138/94
--- NOTE | 2024-04-24 05:27 | NUR ---
PULP GRINDER FEEDER OBTAIEND VITALS AND I&O. PT STATES NO FURHTER NEEDS AT THIS TIME CALL LIGHT WITHIN REACH.
--- NOTE | 2024-04-24 06:37 | NUR ---
PATIENT RESTING IN BED AWAKE. 0700 MEDICATINS GIVEN. VERNA DRAINS EMPTIED. SEROUS FLUID DRAINING. PATIENT REPORTS HE DID NOT SLEEP WELL, " RESTLESS LEGS KEPT ME UP." PATIENT REPORTS HE HAS NO PAIN AT THIS TIME. LUNGS CTA, BOWEL TONES ACTIVE X 4 QUADRANTS. MIDLINE INCISION REMAINS WITH NO CHANGES. NO FURTHER NEEDS AT THIS TIME. CALL LIGHT WITHIN REACH.
--- NOTE | 2024-04-24 07:15 | NUR ---
RECEIVED REPORT FROM ZAHRA BERNARD. PT RESTING IN BED WITH EYES CLOSED, BREATHING EVEN AND UNLABORED. CALL LIGHT WITHIN REACH.
[2024-04-24 09:14] VITALS: BP 145/85
[2024-04-24 09:31] VITALS: BP 145/85
--- NOTE | 2024-04-24 09:31 | NUR ---
PT UP TO CHAIR IN ROOM. IV LEAKING, SALINE LOCKED D/T NOT BEING USED AND POSSIBLE DC TODAY. SCDs NOT CURRENTLY IN USE D/T PT UP AROUND ROOM. ABDOMEN SOFT, NON-TENDER. BOWEL TONES REMAIN ACTIVE. PT DENIES PAIN OR NAUSEA THIS MORNING. R AND L VERNA DRAINS REMAIN IN PLACE WITH SEROUS FLUID PRESENT IN TUBING AND BULBS. BULBS DRAINED, PT EDUCATION ON REAPPLYING SUCTION TO DRAINS. PT'S ARRIVES TO BEDSIDE. PT STATES NO CURRENT NEEDS, CALL LIGHT WITHIN REACH.
--- NOTE | 2024-04-24 10:28 | NUR ---
PT UP TO CHAIR VISITING WITH . PT REQUESTS CRACKERS AND CLEAR ENSURE, GIVEN. PT STATES NO PAIN OR NAUSEA AT THIS TIME. PT STATES NO CURRENT NEEDS. CALL LIGHT WITHIN REACH.
[2024-04-24] MEDS ORDERED: HIGH POTENCY I134 MG PO (11:22)
[2024-04-24] MEDS ORDERED: IBUPROFEN600 MG PO (11:22)
[2024-04-24] MEDS ORDERED: ACETAMINOPHEN500 MG PO (11:22)
[2024-04-24] MEDS ORDERED: SUCRALFATE1 GM PO (11:23)
[2024-04-24] MEDS ORDERED: VITAMIN C250 MG PO (11:23)
[2024-04-24] MEDS ORDERED: METOCLOPRAMIDE10 MG PO (11:23)
[2024-04-24] MEDS ORDERED: PANTOPRAZOLE SO40 MG PO (11:23)
[2024-04-24] MEDS ORDERED: THERA TABLET400 MCG PO (11:24)
[2024-04-24] MEDS ORDERED: B12 ACTIVE1000 MCG PO (11:26)
[2024-04-24 11:33] VITALS: BP 130/81
[2024-04-24 11:34] VITALS: BP 130/81
--- NOTE | 2024-04-24 11:35 | NUR ---
PT UP IN ROOM, DRESSES SELF IN OWN CLOTHES. IV DC'D WNL, WRAPPED IN GAUZE AND COBAN. VSS. AT THE BEDSIDE. PT HAS ALL BELONGINGS HE CAME WITH FOR DC. DR. HOLLAND TO BEDSIDE TO DISCUSS DC, PT VERBALIZES UNDERSTANDING. PT STATES NO FURTHER NEEDS AT THIS TIME, CALL LIGHT WITHIN REACH.
--- NOTE | 2024-04-24 12:30 | NUR ---
PT AMBULATES TO FRONT OF BUILDING WITH NURSING PERSONEL.
--- NOTE | 2024-04-24 14:10 | DS ---
[facility] [address], [place] [address] Signed ADMISSION DATE: 04/17/2024 DISCHARGE DATE: 04/24/2024 REASON FOR ADMISSION: Gastric cancer for resection. HISTORY OF PRESENT ILLNESS: This 68-year-old white man is a patient of [facility]IRGEN Roberto. He was found to have significant anemia and melena requiring hospitalization. Upper endoscopy was performed by me which showed an ulcerated mass adjacent to a gastrojejunostomy I had performed at age 2. 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 He ultimately underwent a gastrojejunostomy when he lived in [place]. He has had no real gastrointestinal problems since that time until recently with his melena. He had undergone colonoscopy by me showing diverticulosis. Upper endoscopy was performed which confirmed the ulcerated mass in the region of the gastrojejunostomy. Such development of malignancy is well known phenomenon related to gastrojejunostomy in the long-term. Evaluation included a CT scan of the abdomen, which showed no evidence of carcinomatosis or ascites. No evidence of metastasis. CEA level was obtained as well. His CT was performed on March 26, 2024. Under the circumstances of his situation, I have recommended subtotal gastrectomy with a Mario-en-Y reconstruction. This was notably likely to be challenging given the prior gastrojejunostomy and uncertain anatomy. A preoperative upper GI was performed, which showed the abnormality to be in the antrum of the stomach largely as the gastrojejunal limb was at the junction between the antrum and body of the stomach. PERTINENT PHYSICAL EXAMINATION: GENERAL: Showed a well-developed, well-nourished white man, in no distress. CHEST: Clear. HEART: Regular without murmur. ABDOMEN: Soft. There is no palpable mass. He had no ascites. There is a well-healed left paramedian incision noted. EXTREMITIES: Show no clubbing, cyanosis, or edema. LABORATORY DATA: His hematocrit was 28 preoperatively. HOSPITAL COURSE: On April 18, 2024, he underwent subtotal gastrectomy with resection of the gastrojejunal Electronically Signed By: ABHISHEK HOLLAND MD 04/24/24 1410 PATIENT NAME: MIKE SOSA DISCHARGE SUMMARY DATE OF : 51 REPORT #: [id number] PHYSICIAN: ABHISHEK HOLLAND MD PCP: ILIA PIÑA REPORT IS CONFIDENTIAL AND NOT TO BE RELEASED WITHOUT AUTHORIZATION [facility] [address], [place] [address] Signed limb in continuity. A Mario-en-Y reconstruction was undertaken with a gastric remnant with the Mario limb passing through the transverse mesocolon. The jejunojejunostomy was foreshortened compared to usual as that portion of jejunum distal to the ligament of Treitz required resection within the operative specimen. A jejuno-jejunal anastomosis was a end-to-side hand-sewn anastomosis. The duodenal stump at the bulbar duodenum was oversewn and bolstered with a segment of round ligament and the gastrojejunal anastomosis was a [id number] wide anastomosis. Two drains were placed, one near the jejuno-jejunal anastomosis, the other in the lesser sac area directly over the pancreas. Additionally performed was cholecystectomy as he had a large gallstone which was multifaceted and which was symptomatic. Cholangiogram was not performed. Postoperatively, he did quite well. Nasogastric tube was left in place for greater than 48 hours and removed thereafter. Anesthetic TAP and intercostal blocks were used for postoperative analgesia as well. Removal of the nasogastric tube allowed for slow initiation of liquids and ultimately a full liquid diet. A low-fiber diet was attempted but was met with a fair amount of bloating and fullness and he returned to the full liquid diet was well tolerated. The drains showed only serous fluid output. He was maintained on a full liquid diet and allowed other things such as crackers and so forth. Vitamin therapy was initiated while hospitalized as well. He did have a dietitian consult regarding a post gastrectomy diet. He was discharged to home without any drains in place. The midline incision is healing well. He is tolerating the diet and will be advancing it at his own pace as an outpatient. On the day prior to discharge, the pathology report is still pending. Quite notably if metastatic disease outside the operative site is noted, then chemotherapy will be a strong consideration and he understands that. DISCHARGE MEDICATIONS: Will include. 1. Ibuprofen 600 mg p.o. q.6 hours as needed for pain #30, no refill. 2. Tylenol 500 mg two tablets p.o. q.6 hours as needed for pain #30, refill 1. Additionally, he will take sucralfate (Carafate) 1 g p.o. at bedtime and before meals on empty stomach #120, refill 1. 3. Pantoprazole 40 mg p.o. daily or Prilosec 20 mg daily if he has that remaining at home. 4. 60, refill 6. 5. Reglan 10 mg p.o. b.i.d. #60, refill 2. He will discontinue if facial twitching or other symptoms of extrapyramidal syndrome. Electronically Signed By: ABHISHEK HOLLAND MD 04/24/24 9189 PATIENT NAME: MIKE SOSA DISCHARGE SUMMARY DATE OF : 51 REPORT #: [id number] PHYSICIAN: ABHISHEK HOLLAND MD PCP: ILIA PIÑA REPORT IS CONFIDENTIAL AND NOT TO BE RELEASED WITHOUT AUTHORIZATION [facility] [address], [place] [address] Signed 6. Vitamin C 250 mg p.o. daily, #30. 7. Multivitamin with folic acid (Thera tablet 400 mcg one p.o. daily #90, refill 4). 8. B12 1000 mcg tab two p.o. daily #90, refill 0. 9. He will continue his usual medication of allopurinol 300 mg tablets as needed for gout, lisinopril 10 mg p.o. daily for hypertension. DISCHARGE DIAGNOSES: 1. 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 2. History of gastrojejunostomy age 2 for gastric outlet obstruction related to muriatic acid ingestion. 3. Status post subtotal gastrectomy with Mario-en-Y reconstruction April 18, 2024. 4. History of gout. 5. Anemia related to melena and GI bleeding from ulcerated lesion of stomach. 6. Allergy to cephalexin and tramadol. MD WALT Meraz/MISTI /[id number] Copies: ~ Electronically Signed By: ABHISHEK HOLLAND MD 04/24/24 1410 PATIENT NAME: MIKE SOSA DISCHARGE SUMMARY DATE OF : 51 REPORT #: [id number] PHYSICIAN: ABHISHEK HOLLAND MD PCP: ILIA PIÑA REPORT IS CONFIDENTIAL AND NOT TO BE RELEASED WITHOUT AUTHORIZATION
--- NOTE | 2024-04-28 15:26 | PATH ---
[facility] [address] [place], [place] [address] Signed THIS IS AN ADDENDUM REPORT SPECIMEN(S): A PORTION OF BODY OF STOMACH SPECIMEN(S): B GALLBLADDER SPECIMEN SOURCE: A. PORTION OF BODY OF STOMACH B. GALLBLADDER CLINICAL HISTORY: Gastric malignancy. FINAL PATHOLOGIC DIAGNOSIS: A. Body of stomach and proximal duodenum, partial gastrectomy duodenectomy: - Adenocarcinoma, see synoptic report B. Gallbladder, cholecystectomy: - Chronic calculous cholecystitis - One reactive lymph node STOMACH SPECIMEN Procedure: Partial gastrectomy, distal TUMOR Tumor Site: Body Histologic Type: Adenocarcinoma Adenocarcinoma Classification (based on WHO): Tubular adenocarcinoma Peggy Classification of Adenocarcinoma: Intestinal type Histologic Grade: G2, moderately differentiated Tumor Size: Greatest Dimension (Centimeters) - 4.4 cm Tumor Extent: Invades serosa (visceral peritoneum) Treatment Effect: No known presurgical therapy Lymphatic and / or Vascular Invasion: Not identified Perineural Invasion: Present MARGINS Margin Status for Invasive Carcinoma: All margins negative for invasive carcinoma Margin Status for Dysplasia: All margins negative for dysplasia REGIONAL LYMPH NODES Regional Lymph Node Status: Tumor present in regional lymph node(s) Number of Lymph Nodes with Tumor: 3 Number of Lymph Nodes Examined: 27 PATIENT NAME: MIKE SOSA PATHOLOGY DATE OF : 51 REPORT #: [id number] PHYSICIAN: TAMRA PATHOLOGY PCP: ILIA PIÑA REPORT IS CONFIDENTIAL AND NOT TO BE RELEASED WITHOUT AUTHORIZATION [facility] [address] [facility] [place], [place] [address] Signed pTNM CLASSIFICATION (AJCC 8th Edition) Reporting of pT, pN, and (when applicable) pM categories is based on information available to the pathologist at the time the report is issued. As per the AJCC (Chapter 1, 8th Ed.) it is the managing physician's responsibility to establish the final pathologic stage based upon all pertinent information, including but potentially not limited to this pathology report. pT Category: pT4a pN Category: pN2 COMMENT: For part A, testing for microsatellite instability performed on the prior biopsy ([id number]) was reported as normal pattern of expression. Testing for HER2 by IHC has been ordered on the current specimen and will be reported in an addendum. As part of [facility]' Quality Improvement Program, this case was reviewed by another member of our pathology staff. [facility] MICROSCOPIC EXAMINATION: Histologic sections of all submitted blocks are examined by light microscopy. These findings, together with the gross examination, support the pathologic diagnosis. GROSS DESCRIPTION: A. The specimen, labeled and designated "Jeremy, S, " and designated on the requisition "portion of body of stomach, proximal duodenum, loop of gastro-jejunostomy," is received in formalin and consists of a portion of stomach (9.5 cm in length and ranging diameter from 3.0 to 5.0 cm) with a portion of duodenum (4.0 cm in length by 2.0 cm in diameter), anastomosed portion of small bowel (19.5 cm in length by 3.9 cm in diameter) on the stomach. There is a ellis to red-brown, firm centrally, ulcerated mass (4.4 x 4.0 x 1.7 cm) within the body of the stomach at the area of anastomosis and located 3.0 cm from the proximal gastric margin, 3.0 cm from the duodenum and 6.0 cm from the duodenal margin. The mass is also 21 cm from the anastomosed small bowel margin. The serosa adjacent to the mass is inked blue. The mass grossly involves the mucosa, submucosa muscularis and extends to the serosa and attached soft tissue. The remainder of the stomach shows red-brown mucosa and ellis-pink mucosa within the small bowel with no other masses or lesions gross PATIENT NAME: MIKE SOSA PATHOLOGY DATE OF : 51 REPORT #: [id number] PHYSICIAN: TAMRA PATHOLOGY PCP: ILIA PIÑA REPORT IS CONFIDENTIAL AND NOT TO BE RELEASED WITHOUT AUTHORIZATION [facility] [address] [place], [place] [address] Signed identified. Also received is a detached portion of yellow-ellis to red-brown omentum (46.0 x 14.0 x 4.5 cm) that is sectioned to reveal yellow-ellis fibrofatty cut surfaces with no masses or nodules grossly identified. The fat surrounding the stomach is palpated and three possible lymph nodes identified within the lesser curvature (0.3-1.3 cm in greatest dimension), and 18 possible lymph nodes are identified within the greater curvature (0.3-1.0 cm in greatest dimension). The fat attached to the small bowel is palpated and six possible lymph nodes are identified (ranging in size from 0.4-2.8 cm in greatest dimension). All possible lymph nodes are submitted entirely. Network Support Specialist sections of the specimen are submitted. Cassette Summary: (A1-A2) proximal gastric margin, shaved (A3) duodenal margin, shaved (A4) anastomosed segment of small bowel, margin, shaved (A5) mass to proximal stomach (A6) mass of distal stomach (A7-A8) mass to area of anastomosis (A9-A10) mass to serosa and attached soft tissue (A11) duodenum (A12) anastomosed small bowel wall (A13-A14) omentum Lesser curvature possible lymph nodes: (A15) three possible lymph nodes, intact (A16) one possible lymph node, intact (A17) one possible lymph node, bisected Greater curvature possible lymph nodes: (A18) six possible lymph nodes, intact (A19) five possible lymph nodes, intact (A20) three possible lymph nodes, intact (A21) two possible lymph nodes, intact (A22) two possible lymph nodes, intact Small bowel fat possible lymph nodes: (A23) four possible lymph nodes, intact (A24-A25) one possible lymph node, serially sectioned (A26-A29) one possible lymph node, serially sectioned B. The specimen, labeled and designated "Jeremy, Gloria, " and designated on the requisition "gallbladder," is received in formalin and consists of Specimen: Previously opened gallbladder. PATIENT NAME: MIKE SOSA PATHOLOGY DATE OF : 51 REPORT #: [id number] PHYSICIAN: TAMRA BRYSON PCP: ILIA PIÑA REPORT IS CONFIDENTIAL AND NOT TO BE RELEASED WITHOUT AUTHORIZATION [address] [address] Signed Dimensions: 10.1 x 4.2 x 0.6 cm. Serosa: Pale pink and wrinkled. Cystic Duct: Probe patent, inked. Calculi: 1 black smooth calculus that is 2.6 cm in greatest dimension. Mucosa: Green and velvety. Wall thickness: 0.3 cm. Lymph node: One pink possible pericystic lymph node that is 1.4 cm in greatest dimension. Additional: None. Network Support Specialist sections are submitted in (B1). AC (under the direct supervision of a pathologist) The Gross Description was prepared using a voice recognition system. The report was reviewed for accuracy; however, sound-alike word errors, addition and/or deletions may occur. If there is any question about this report, please contact Client Services. ADDITIONAL NOTES: Immunohistochemical and/or in situ hybridization studies if performed in this case included appropriate positive controls that reacted as expected. This test was developed and its performance characteristics determined by [facility]. It has not been cleared or approved by the U.S. Food and Drug Administration. The FDA has determined that such clearance or approval is not necessary. This test is used for clinical purposes. It should not be regarded as investigational or for research. [facility] is certified under the Clinical Laboratory Improvement Amendments of 1988 (CLIA) as qualified to perform high complexity clinical laboratory testing. PERFORMING LABORATORY: Technical component was performed by [facility], [address] [place] [id number] (CLIA# [id number]). Professional interpretation was performed by [facility] [address] [place] [phone] [id number] REASON FOR ADDENDUM: HER-2 by IHC on block A9 HER-2 protein by IHC: - Positive; IHC score 3+. ADDENDUM MICROSCOPIC EXAMINATION: PATIENT NAME: MIKE SOSA PATHOLOGY DATE OF : 51 REPORT #: [id number] PHYSICIAN: ANIKETBlueKai PATHOLOGY PCP: ILIA PIÑA REPORT IS CONFIDENTIAL AND NOT TO BE RELEASED WITHOUT AUTHORIZATION [facility] [address] [place], [place] [address] Signed - Circumferential membrane staining that is complete, intense and within greater than 10% of tumor cells; score 3+. TECHNICAL NOTES: Immunohistochemical studies were performed on this case with the appropriate negative and positive controls that react as expected. These tests were developed and their performance characteristics determined by [facility]. The fixation is 10% buffered formalin. The length of fixation is at least 8 hours, meeting ASCO/CAP guidelines. The presence of tumor is confirmed. Scoring is according to ASCO/CAP 2018 guidelines for breast HER-2 testing. The technical component for HER-2 protein expression by immunohistochemistry using the FDA-approved HER-2 Pathway was performed by [facility], [address] [place] [id number]. The professional interpretation was performed by [facility], [facility], [address] [place] [address]. Diagnostician: Maikel Garcia MD Pathologist Diagnostician: Chandana Cabrera MD Pathologist Electronically Signed 04/28/2024 Copies: ~ PATIENT NAME: MIKE SOSA PATHOLOGY DATE OF : 51 REPORT #: [id number] PHYSICIAN: TAMRA PATHOLOGY PCP: ILIA PIÑA REPORT IS CONFIDENTIAL AND NOT TO BE RELEASED WITHOUT AUTHORIZATION
== END 2024-04-24 12:30 | disposition home or self-care (01) | DRG 327 ==
LOC: MS 04-17 06:05 → DSVR 04-17 06:05 → MS 04-17 07:30
PROVIDERS: ADMIT Surgery; ATTEND Surgery
PROC: 0DB60ZZ Excision of Stomach, Open Approach (ICD-10-PCS; principal; 2024-04-19)
PROC: 0DBA0ZZ Excision of Jejunum, Open Approach (ICD-10-PCS; 2024-04-19)
PROC: 0FT40ZZ Resection of Gallbladder, Open Approach (ICD-10-PCS; 2024-04-19)
PROC: 0D160ZA Bypass Stomach to Jejunum, Open Approach (ICD-10-PCS; 2024-04-19)
DX: C16.9 Malignant neoplasm of stomach, unspecified (principal); C17.1 Malignant neoplasm of jejunum; K80.20 Calculus of gallbladder without cholecystitis without obstruction; D64.9 Anemia, unspecified; K57.30 Diverticulosis of large intestine without perforation or abscess without bleeding; I10 Essential (primary) hypertension; G47.33 Obstructive sleep apnea (adult) (pediatric)
CPT/HCPCS: 00790; 36415; 71045; 76942; 80048; 80053; 83735; 85025; 88304; 88309; 88360; 94762; A9270; C9113; J0131; J0780; J1100; J1644; J1790; J1885; J1956; J2001; J2270; J2405; J2704; J2765; J2795; J3010; J3480; J3490; J7121

== ENCOUNTER 2024-05-16 10:02 | Day surgery (SDC) | payer MEDICARE, BC ==
[~2024-05-16] VITALS: Ht 172.7 cm; Wt 75.0 kg
[~2024-05-16 10:02] MED LIST changes: +ACETAMINOPHEN500 MG PO; +B12 ACTIVE1000 MCG PO; +CARAFATE1 GM PO; +CEFAZOLIN SODIUM 2 GM/20 ML SYR IV SCH; +HEParin SOD (PORCINE) 5,000 UNIT/0.5 ML SYR SUB-Q SCH; +IBLOOD GLUCOSE TEST STRIP 1 EA TEST VI PRN; +IBUPROFEN600 MG PO; +LACTATED RINGER'S 1,000 ML IV SCH; +LIDOCAINE HCL 1% 5 ML SDV INJ ONE; +LISINOPRIL10 MG PO; +METOCLOPRAMIDE HCL 10 MG/2 ML SDV IV PRN; +METOCLOPRAMIDE10 MG PO; +MORPHINE SULFATE 10 MG/ML VIAL IV PRN; +NALOXONE HCL 0.4 MG SYR IV PRN; +PROCHLORPERAZINE EDISYLATE 10 MG/2 ML VIAL IV PRN; +THERA TABLET400 MCG PO; +VITAMIN C250 MG PO; +ZINC30 M1 PO; +droPERidol 5 MG/2 ML VIAL IV PRN; +fentaNYL citrate 50 MCG/ML SDV IV PRN; +ondansetron HCL 4 MG/2 ML VIAL IV PRN
[2024-05-16 10:21] VITALS: BP 150/91
--- NOTE | 2024-05-16 10:42 | NUR ---
OZ AT BEDSIDE.
[2024-05-16] MEDS ORDERED: LACTATED RINGER'S 1,000 ML IV ONE (12:00)
[2024-05-16] MEDS ORDERED: KETOROLAC TROMETHAMINE 30 MG/ML VIAL ONE (12:00)
[2024-05-16] MEDS ORDERED: DEXAMETHASONE SOD PHOS 4 MG/ML VIAL ONE (12:00)
[2024-05-16] MEDS ORDERED: ondansetron HCL 4 MG/2 ML VIAL ONE (12:00)
[2024-05-16] MEDS ORDERED: propofoL 200 MG/20 ML VIAL ONE (12:00)
[2024-05-16] MEDS ORDERED: FAMOTIDINE 20 MG/ 2 ML VIAL ONE (12:00)
[2024-05-16] MEDS ORDERED: MIDAZOLAM HCL 2 MG/2 ML VIAL ONE (12:00)
[2024-05-16] MEDS ORDERED: METOCLOPRAMIDE HCL 10 MG/2 ML SDV ONE (12:00)
[2024-05-16] MEDS ORDERED: fentaNYL citrate 100 MCG/2 ML VIAL ONE (12:01)
--- NOTE | 2024-05-16 12:01 | NUR ---
1145 WARM BLANKETS ON.
[2024-05-16] MEDS ORDERED: SODIUM CHLORIDE 0.9% 100 ML IV ONE (12:42)
[2024-05-16] MEDS ORDERED: HEParin SOD (PORCINE) 5,000 UNIT/ML SDV ONE (12:42)
[2024-05-16] MEDS ORDERED: iopamidoL 30 ML VIAL ONE (12:42)
[2024-05-16] MEDS ORDERED: MORPHINE SULFATE 4 MG/ML VIAL IV ONE (13:00)
--- NOTE | 2024-05-16 13:13 | NUR ---
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 STATES IMPROVING AND DOESNT REQUIRE ANY MORE.
--- NOTE | 2024-05-16 13:40 | NUR ---
COMPLIANCE SPEC IN TO NAYLA;K WITH PT AND . HAS BEEN UP TO BR.
[2024-05-16] MEDS ORDERED: ATROPINE SULFATE 1 MG/ML VIAL ONE (14:29)
[2024-05-16] MEDS ORDERED: IBUPROFEN600 MG PO (15:38)
[2024-05-16] MEDS ORDERED: ACETAMINOPHEN500 MG PO (15:39)
[2024-05-16] MEDS ORDERED: OXYCODON-ACETA1 EAC2 PO (15:39)
[2024-05-16] MEDS ORDERED: OXYCODONE/APAP 7.5/325 TAB PO PRN (15:45)
[2024-05-16] MEDS ORDERED: LACTATED RINGER'S 1,000 ML IV SCH (15:45)
[2024-05-16] MEDS ORDERED: IBUPROFEN 600 MG TAB PO PRN (15:45)
[2024-05-16] MEDS ORDERED: ACETAMINOPHEN 500 MG TAB PO PRN (15:45)
[2024-05-16] MEDS ORDERED: NALOXONE HCL 0.4 MG SYR IV PRN (15:45)
--- NOTE | 2024-05-16 16:01 | NUR ---
05/16/24 1601 Marisela Mcghee 1519-PT ARRIVED BACK TO PACU UNRESPONSIVE TO NOXIOUS STIMULI, ON 10L/MASK. RR EVEN AND UNLABORED. DR. HOLLAND WITH VERBAL ORDER FOR CXR TO CONFIRM PORT-A-CATH PLACEMENT IN [place]. ORDER ENTERED. RADIOLOGY CALLED. 1525-PT TIRTATED DOWN TO 6L/MASK. SATS REMAIN STBALE IN UPPER 90'S. RR EVEN AND UNLABORED. 1532-PT AROUSING AND REPOSITIONING SELF IN BED. DENIES PAINNM REPORTS MILD NAUSEA. DENIES NEED FOR ANY MEDS AT THIS TIME TO BE GIVEN. PT TIRATED TO RA. PT REMAINS DROWSY AND DOZING ON AND OFF. EASILY AROUSED. 1536-2L/NC PLACED D/T DESATS TO 89-90% ON RA. PT WITH SHALLOW AND SLOWING RR WHEN SLEEPING AGAIN. 1540-RADIOLOGY HERE FOR CXR. AMALIA AT BEDSIDE TO REVIEW. 1553-PT WAKINGMORE, REQUESTS HOB TO BE ELEVATED MORE. ELEVATED APPROX TO 45 DEGREES. PT TAKING SIPS OF WATER. CONT TO DENY PAIN AND REPORTS NO NAUSEA.
--- NOTE | 2024-05-16 16:05 | NUR ---
PT RETURNED TO ROOM AND TALKING ON THE PHONE TO HIS FAMILY. AT BEDSIDE. ALL QUESTIONS ANSWERED. CALL LIGHT WITHIN REACH, PT SIPPING WATER AND EATING WITHOUT CONCERNS. 2L NC REMOVED AND PULSE OX IN PLACE O2 SAT REMAINS 100%. VSS. PT REPORTS 0/10 PAIN AND NOP NAUSEA. PLAN OF CARE DISCUSSED.
[2024-05-16 16:51] VITALS: BP 119/73
--- NOTE | 2024-05-16 17:21 | NUR ---
LE 1650: PT IS ASSISTED UP OOB WITH STAND BY ASSIST TO THE BATHROOM. HE IS ABLE TO VOID QS. HE IS HELPED BACK TO HIS ROOM. LE 1700: PT AND ARE GIVEN VERBAL AND WRITTEN DC INSTRUCTIONS. THEY BOTH VERBALIZE UNDERSTANDING. QUESTIONS ARE ASKED AND ANSWERED. PT IS EDUCATED ON HOW TO BEST DRESS HIMSELF AND TO OPEN HIS CURTAIN WHEN HE IS READY. LE 1710: PT IS DC'D HOME VIA . HE IS ABLE TO TRANSFER HIMSELF FROM TO PERSONAL VEHICLE.
--- NOTE | 2024-05-17 11:36 | OR ---
[facility] [address] [place], [place] [address] Signed DATE OF OPERATION: 05/16/2024 SURGEON: Abhishek Holland MD PREOPERATIVE DIAGNOSIS: Gastric cancer status post partial gastrectomy with Mario-en-Y anastomosis. POSTOPERATIVE DIAGNOSIS: Gastric cancer status post partial gastrectomy with Mario-en-Y anastomosis. PROCEDURE: 1. Placement of left subclavian BardPort central venous catheter. 2. Surgeon-directed fluoroscopy. ANESTHESIA: General LMA, Abhishek Morales CRNA. INDICATION: This 68-year-old white man is a patient of [facility] Roberto. 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 He underwent subtotal gastrectomy with Mario-en-Y gastrojejunostomy and has been doing well quite clinically. Evaluation by Dr. Delarosa was undertaken as he had some lymph nodes that were positive associated with resected specimen. Chemotherapy is anticipated a week from Sunday. He is here to undergo placement of a Port-A-Cath device for chemotherapy. The risk of bleeding, infection, pneumothorax, and other unforeseen complications were reviewed with him and his they understand and wished to proceed. FINDINGS: Easy access of the left subclavian vein was noted. A right-sided internal jugular vein approach was not undertaken as he had a very large crossing anterior vein that was low in the neck and therefore would be problematic for tunneling. Placement of the catheter initially was quite functional, but the tip of the catheter was noted to be in a more transverse projection likely into the azygos system rather than superior vena cava as had been intended. On that basis, the catheter was removed and repeat of the procedure undertaken this time with the tip of the catheter in the superior vena cava with good function, aspiration and injection. DESCRIPTION OF PROCEDURE: The patient was brought to the operating room, given a general LMA type anesthetic. Electronically Signed By: ABHISHEK HOLLAND MD 05/17/24 1136 PATIENT NAME: MIKE SOSA OPERATIVE REPORT DATE OF : 51 REPORT #: [id number] PHYSICIAN: ABHISHEK HOLLAND MD PCP: ILIA PIÑA REPORT IS CONFIDENTIAL AND NOT TO BE RELEASED WITHOUT AUTHORIZATION [facility] [address] [place], [place] [address] Signed Preoperative antibiotic Ancef was given. Arms were placed at the side. The chest was clipped and the neck on both sides of the chest on both sides were prepared with a chlorhexidine solution. Initial examination of the neck showed the anterior facial vein to be relatively large and crossing relatively low over the neck, which would make passage of the catheter for an internal jugular approach more problematic and on that basis, a left subclavian approach was deemed more advisable. The face was turned towards the right and access to the left subclavian vein undertaken. With subsequent technique, the left subclavian vein was easily accessed on single pass showing dark nonpulsatile blood. A flexible J-wire from the Bard port catheter kit was passed down the needle and the needle was removed. Surgeon-directed fluoroscopy confirmed the wire to be in the right heart system. A transverse incision was made over the left pectoralis with a 15 blade and dissected through the subcutaneous tissue, creating a pocket over the left pectoralis using blunt electrocautery dissection. The Bard port device was partially secured to the pectoralis fascia at that point. The site from which the wire emanated from the left infraclavicular space was incised with an 11 blade and the dilator and subsequently dilator and peel-away introducer passed over it. The wire and the dilator were removed showing vigorous nonpulsatile retrograde venous bleeding. A previously inspected blue catheter from the Bard port kit was passed down the dilator stabilized and the peel-away introducer removed completely. The patient was then put in a neutral non-Trendelenburg position. Under fluoroscopic control, the catheter was withdrawn to what appeared to be the superior vena cava. The catheter was then tunneled 1st usual technique with a tunneling device to the port device and trimmed to the appropriate length and attached to the port device. Aspiration and irrigation of the catheter were initially quite good without impediment. Fluoroscopy was performed, which showed the trajectory of the tip of the catheter in a more transverse plane not to the subclavian, but rather likely to the superior vena cava and possibly to the azygos vein. The port was accessed percutaneously, which unfortunately was highly variable and aspiration of blood and even variable and infusion of heparinized saline. The wound was opened and access without skin intervening, still showed problematic aspiration and on the basis of a suboptimal function, it was deemed most vitals to simply remove the catheter and start again. The port was removed as was the catheter at that point. A new kit was obtained and somewhat inferior to the initial puncture side in the left infraclavicular space, access of the vein was once again undertaken and with the exact same technique, wire was placed into the superior vena cava area. Fluoroscopy confirmed this. The site was incised, dilated and a new port applied to the previous pocket site and the catheter placed down the peel-away sheath introducer, stabilizing it and Electronically Signed By: ABHISHEK HOLLAND MD 05/17/24 1136 PATIENT NAME: MIKE SOSA OPERATIVE REPORT DATE OF : 51 REPORT #: [id number] PHYSICIAN: ABHISHEK HOLLAND MD PCP: ILIA PIÑA REPORT IS CONFIDENTIAL AND NOT TO BE RELEASED WITHOUT AUTHORIZATION [facility] [address] [place], [place] [address] Signed completely removing the sheath. Fluoroscopy was once again used, there was a small amount of contrast and the catheter, withdrawn the tip of the catheter a bit more distally into the superior vena cava to avoid any kind of dislodgement. The catheter was then tunneled to the port pocket site, secured to the port and a port secured to the pectoralis fascia with interrupted 2-0 Vicryl previously placed. Access of the port device with a Trujillo needle with both heparin saline and so forth showed excellent withdrawal and delivery of heparinized saline. The port pocket was then closed fully with 2-0 Vicryl the subcutaneous layer and running subcuticular 3-0 Vicryl for the skin. The access sites beneath the left clavicle were reapproximated with interrupted 3-0 Vicryl. One final access of the port device percutaneously with the Trujillo needle showed easy aspiration of blood and easy infusion of heparinized saline. Steri-Strips were applied to both wounds. An OpSite was applied to the infraclavicular site and an Acticoat dressing applied to the port site. The patient was ultimately extubated and transferred to the recovery room in good condition, having suffered no complication. Sponge, needle, and instrument counts were reported as correct x3. Abhishek Holland MD /CESILIAL /[id number] Copies: ~ Electronically Signed By: ABHISHEK HOLLAND MD 05/17/24 1136 PATIENT NAME: MIKE SOSA OPERATIVE REPORT DATE OF : 51 REPORT #: [id number] PHYSICIAN: ABHISHEK HOLLAND MD PCP: ILIA PIÑA REPORT IS CONFIDENTIAL AND NOT TO BE RELEASED WITHOUT AUTHORIZATION
== END 2024-05-16 17:10 | disposition home or self-care (01) ==
LOC: DS 10:02
PROVIDERS: ATTEND Surgery
PROC: 0JH63WZ Insertion of Totally Implantable Vascular Access Device into Chest Subcutaneous Tissue and Fascia, Percutaneous Approach (ICD-10-PCS; principal; 2024-05-16 12:00)
DX: C16.9 Malignant neoplasm of stomach, unspecified (principal); Z98.0 Intestinal bypass and anastomosis status
CPT/HCPCS: 00532; 71045; 77001; C1788; J0461; J1100; J1644; J1885; J2250; J2270; J2405; J2704; J2765; J3010; J7121

== ENCOUNTER 2024-12-04 09:00 | Day surgery (SDC) | payer MEDICARE, BC ==
[~2024-12-04] VITALS: Ht 172.7 cm; Wt 72.7 kg
[~2024-12-04 09:00] MED LIST changes: +CARAFATE1 GM; -CEFAZOLIN SODIUM 2 GM/20 ML SYR IV SCH; -HEParin SOD (PORCINE) 5,000 UNIT/0.5 ML SYR SUB-Q SCH; +LIDOCAINE HCL 4% 50 ML BTL TOP SCH; -METOCLOPRAMIDE HCL 10 MG/2 ML SDV IV PRN; +MIDAZOLAM HCL 5 MG/5 ML VIAL IV PRN; -MORPHINE SULFATE 10 MG/ML VIAL IV PRN; -NALOXONE HCL 0.4 MG SYR IV PRN; +OXYCODON-ACETA1 EAC2 PO; -PROCHLORPERAZINE EDISYLATE 10 MG/2 ML VIAL IV PRN; -droPERidol 5 MG/2 ML VIAL IV PRN; +fentaNYL citrate 100 MCG/2 ML VIAL IV PRN; -fentaNYL citrate 50 MCG/ML SDV IV PRN; -ondansetron HCL 4 MG/2 ML VIAL IV PRN
[2024-12-04] MEDS ORDERED: VITAMIN C1000 MG PO (09:48)
[2024-12-04] MEDS ORDERED: HYDROCHLOROTH12.5 MG PO (09:49)
[2024-12-04] MEDS ORDERED: VITAMIN E100 UNI2 PO (09:50)
[2024-12-04] MEDS ORDERED: VITAMIN D350 MC3 PO (09:50)
[2024-12-04] MEDS ORDERED: FISH OIL 1,001000 MG PO (09:52)
[2024-12-04 09:54] VITALS: BP 157/93
[2024-12-04] MEDS ORDERED: MIDAZOLAM HCL 5 MG/5 ML VIAL ONE (10:59)
[2024-12-04] MEDS ORDERED: fentaNYL citrate 100 MCG/2 ML VIAL ONE (11:00)
--- NOTE | 2024-12-04 11:38 | NUR ---
12/04/24 1138 Lori De Jesus 1134-PATIENT ARRIVED TO PACU ON 3L NC PLACED ON 2. RR EVEN PATIENT DROWSY DENIES PAIN OR NAUSEA. ABDOMEN SOFT. IVF INFUSING. PATIENT CLOSES EYES.
[2024-12-04 12:13] VITALS: BP 145/94
--- NOTE | 2024-12-06 13:03 | OR ---
[facility] [address], [place] [address] Signed DATE OF OPERATION: 12/04/2024 SURGEON: Abhishek Holland MD PREOPERATIVE DIAGNOSIS: History of subtotal gastrectomy with Mario-en-Y reconstruction for adenocarcinoma of antrum of stomach. POSTOPERATIVE DIAGNOSES: 1. No evidence of recurrent or persistent neoplasm; mucosal area with polypoid versus hypertrophic changes. 2. Widely patent gastrojejunal and duodenojejunal anastomoses. PROCEDURE: Esophagogastroduodenoscopy with biopsy. ANESTHESIA: Intravenous sedation fentanyl 100 mcg and Versed 4 mg. INDICATION: This 69-year-old white man is a patient of VIRGEN Roberto. He presented with gastrointestinal bleeding, was evaluated by me including upper endoscopy, which showed hemorrhage from a gastric neoplasm. 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 This was performed in [place]. The patient was proven to have adenocarcinoma upon biopsies and underwent neoadjuvant chemotherapy and subsequently subtotal gastrectomy Mario-en-Y reconstruction by me in March 2024. He underwent additional chemotherapy. He was noted to have perigastric lymph node involvement (two lymph nodes). He shows no evidence of recurrent disease distantly and is doing exceedingly well regarding oral intake and so on. He is admitted for surveillance upper endoscopy. He understands the risk of bleeding, infection, and perforation. FINDINGS: Esophagus was completely normal. Gastric pouch showed no sign of gastric inflammation and of course, no bile. The anastomosis was widely patent. There was an area of mucosal hypertrophy or possible adenomatous change proximal to the anastomosis which was multiply biopsied, but not excised with snare technique pending further histologic confirmation. Scope easily passed through the gastrojejunal anastomosis and even as far down as to the duodenojejunal anastomosis showing both to be widely patent. Retroflexed Electronically Signed By: ABHISHEK HOLLAND MD 12/06/24 1303 PATIENT NAME: MIKE SOSA OPERATIVE REPORT DATE OF : 51 REPORT #: [id number] PHYSICIAN: ABHISHEK HOLLAND MD PCP: ILIA PIÑA REPORT IS CONFIDENTIAL AND NOT TO BE RELEASED WITHOUT AUTHORIZATION [facility] [address], [place] [address] Signed passage of the scope into the duodenum allowed for visualization of the ampulla itself. H pylori testing (CLOtest) was negative thus far. DESCRIPTION OF PROCEDURE: The patient was brought to the endoscopy suite and given topical lidocaine hypopharyngeal anesthesia and placed in lateral decubitus position. After satisfactory intravenous sedation with full cardiopulmonary monitoring a bite block was placed. An Olympus video upper endoscope passed in the hypopharynx. Vocal cords were normal. Scope was advanced to the esophagus. It was completely normal. The scope was passed to the stomach which was insufflated with air. There was no sign of bile within the stomach. Gastric folds appeared normal. The anastomosis was visualized as noted by some silk sutures still in place and appeared normal. Scope was advanced into the gastrojejunal anastomosis and passed as far as possible. Ultimately attaining passage into the area beyond the duodenojejunal anastomosis as manifest by bile. Retroflexed view in advancement into the duodenal limb ultimately did show I believe the ampulla itself. The scope was withdrawn and fully withdrawn to the gastric remnant once again. Biopsies were taken randomly of the gastric pouch and an area of mucosal hypertrophy versus adenomatous change (more likely hypertrophy) with multiple biopsies. CLOtest biopsies were taken as well. Scope was withdrawn. Biopsy was then taken of the esophageal mucosa. Scope withdrawn and removed and the patient was taken to the recovery room in good condition. CONCLUDING DIAGNOSIS: No evidence of recurrent neoplasm. Hypertrophy versus adenomatous change of small portion of gastric remnant proximal to anastomosis, biopsied and pending. PLAN: Would like to see him back in the office in the next few weeks and certainly in 4 to 6 months for followup. If biopsy of the hypertrophied mucosa of the gastric remnant proves to be adenomatous, would have prompt return and more elaborate snare excision. MD WALT Meraz/CESILIAL /[id number] Electronically Signed By: ABHISHEK HOLLAND MD 12/06/24 1303 PATIENT NAME: MIKE SOSA OPERATIVE REPORT DATE OF : 51 REPORT #: [id number] PHYSICIAN: ABHISHEK HOLLAND MD PCP: ILIA PIÑA REPORT IS CONFIDENTIAL AND NOT TO BE RELEASED WITHOUT AUTHORIZATION [facility] [address] [place] [id number] Signed cc: MD Ilia Schwartz PA Copies: GABBY CORTEZ MD, LINDA PA ~ Electronically Signed By: ABHISHEK HOLLAND MD 12/06/24 1303 PATIENT NAME: MIKE SOSA OPERATIVE REPORT DATE OF : 51 REPORT #: [id number] PHYSICIAN: ABHISHEK HOLLAND MD PCP: ILIA PIÑA REPORT IS CONFIDENTIAL AND NOT TO BE RELEASED WITHOUT AUTHORIZATION
--- NOTE | 2024-12-10 17:34 | PATH ---
[facility] [address], [place] [address] Signed SPECIMEN(S): A PYLORUS BIOPSY SPECIMEN(S): B STOMACH BIOPSY SPECIMEN(S): C LOWER ESOPHAGEAL BIOPSY SPECIMEN SOURCE: A. PYLORUS BIOPSY B. STOMACH BIOPSY C. LOWER ESOPHAGEAL BIOPSY CLINICAL HISTORY: History of stomach cancer, history subtotal gastrectomy. #1 rule out prepylorus anastomosis. #2 rule out stomach. FINAL PATHOLOGIC DIAGNOSIS: A. Pylorus biopsy: - Gastric mucosa with superficial mild chronic gastritis. - A Helicobacter pylori immunostain is negative for organisms. B. Stomach biopsy: - Superficial mild chronic gastritis. - A Helicobacter pylori immunostain is negative for organisms. C. Lower esophageal biopsy: - Benign esophageal epithelium, negative for increased epithelial eosinophils. - Negative for glandular mucosa. COMMENT: As part of the [facility] [employer], the case has been reviewed by a second pathologist (MACKENZIE and RAJ). JVR:clv MICROSCOPIC EXAMINATION: Histologic sections of all submitted blocks are examined by light microscopy. These findings, together with the gross examination, support the pathologic diagnosis. A Helicobacter pylori immunostain is performed with appropriate positive and negative controls on blocks A1 and B1 and are negative for organisms. A cytokeratin AE1/AE3 immunostain was performed with appropriate controls on blocks A1 and B1 and are negative for occult carcinoma. JVR:clv GROSS DESCRIPTION: A. The specimen, labeled and designated "Gloria Luna, 1.," and designated on the PATIENT NAME: MIKE LUNA PATHOLOGY DATE OF : 51 REPORT #: [id number] PHYSICIAN: TAMRA BRYSON PCP: ILIA PIÑA REPORT IS CONFIDENTIAL AND NOT TO BE RELEASED WITHOUT AUTHORIZATION [facility] [address], [place] [address] Signed requisition "pylorus biopsy, peripyloric anastomosis," is received in formalin and consists of four ellis soft tissue fragments that measure 0.2-0.7 cm in greatest dimension. The specimen is entirely submitted in (A1). B. The specimen, labeled and designated "Jeremy, S, 2.," and designated on the requisition "stomach biopsy," is received in formalin and consists of multiple ellis soft tissue fragments that measure 0.2-0.5 cm in greatest dimension. The specimen is entirely submitted in (B1). C. The specimen, labeled and designated "Jeremy, S, 3.," and designated on the requisition "lower esophagus biopsy," is received in formalin and consists of one white-ellis soft tissue fragment that measures 0.7 cm in greatest dimension. The specimen is entirely submitted in (C1). FB (under the direct supervision of a pathologist) The Gross Description was prepared using a voice recognition system. The report was reviewed for accuracy; however, sound-alike word errors, addition and/or deletions may occur. If there is any question about this report, please contact Client Services. PERFORMING LABORATORY: Technical component was performed by [facility], [address] [place] [id number] (CLIA# [id number]). Professional interpretation was performed by [facility] - [address] [address] (CLIA#: [id number]). Diagnostician: Landen Aparicio MD Pathologist Electronically Signed 12/10/2024 Copies: ~ PATIENT NAME: MIKE LUNA PATHOLOGY DATE OF : 51 REPORT #: [id number] PHYSICIAN: TAMRA PATHOLOGY PCP: ILIA PIÑA REPORT IS CONFIDENTIAL AND NOT TO BE RELEASED WITHOUT AUTHORIZATION
== END 2024-12-04 12:15 | disposition home or self-care (01) ==
LOC: DS 09:00
PROVIDERS: ATTEND Surgery
PROC: 0DB78ZX Excision of Stomach, Pylorus, Via Natural or Artificial Opening Endoscopic, Diagnostic (ICD-10-PCS; 2024-12-04)
PROC: 0DB68ZX Excision of Stomach, Via Natural or Artificial Opening Endoscopic, Diagnostic (ICD-10-PCS; 2024-12-04)
PROC: 0DB38ZX Excision of Lower Esophagus, Via Natural or Artificial Opening Endoscopic, Diagnostic (ICD-10-PCS; principal; 2024-12-04 12:15)
DX: Z12.0 Encounter for screening for malignant neoplasm of stomach (principal); K29.50 Unspecified chronic gastritis without bleeding; I10 Essential (primary) hypertension; Z85.028 Personal history of other malignant neoplasm of stomach; Z79.899 Other long term (current) drug therapy; Z88.1 Allergy status to other antibiotic agents; Z88.5 Allergy status to narcotic agent; Z88.8 Allergy status to other drugs, medicaments and biological substances; Z90.3 Acquired absence of stomach [part of]; Z98.0 Intestinal bypass and anastomosis status
CPT/HCPCS: 88305; 88341; 88342; 99153; G0500; J2250; J3010; J7121